=== PATIENT | female | born 2000 | race Two or more races ===

== ENCOUNTER 2020-12-12 09:32 | Emergency (ER) | payer OTHER, MEDICAID, SELFPAY ==
--- NOTE | ~2020-12-12 | XR_ITS ---
EXAMINATION: XR ANKLE, RIGHT XR FOOT, RIGHT CLINICAL INFORMATION: Fall, trauma, pain and swelling. COMPARISON: None TECHNIQUE: The right ankle is imaged in 2 views, the right foot is imaged in 2 views. There is a lateral view of the combined right ankle and foot in large [id number] for a total of 5 views. FINDINGS: The malleoli are intact and the ankle mortise is symmetric. There is no ankle capsular effusion. A corticated ossicle is seen just distal to the lateral malleolus. The retrocalcaneal recess is preserved. There are borderline posterior and plantar calcaneal spurs. The subtalar joint is unremarkable. The midfoot and forefoot show no fracture or dislocation or arthropathy. Normal bony mineralization. XR/XR foot RT min 3V IMPRESSION: No fracture or dislocation.
--- NOTE | ~2020-12-12 | XR_ITS ---
EXAMINATION: XR ANKLE, RIGHT XR FOOT, RIGHT CLINICAL INFORMATION: Fall, trauma, pain and swelling. COMPARISON: None TECHNIQUE: The right ankle is imaged in 2 views, the right foot is imaged in 2 views. There is a lateral view of the combined right ankle and foot in large [id number] for a total of 5 views. FINDINGS: The malleoli are intact and the ankle mortise is symmetric. There is no ankle capsular effusion. A corticated ossicle is seen just distal to the lateral malleolus. The retrocalcaneal recess is preserved. There are borderline posterior and plantar calcaneal spurs. The subtalar joint is unremarkable. The midfoot and forefoot show no fracture or dislocation or arthropathy. Normal bony mineralization. XR/XR ankle RT min 3V IMPRESSION: No fracture or dislocation.
[2020-12-12 10:05] VITALS: BP 99/48; PULSE 63; RESP 18; TEMP 36.6; O2SAT 99; BMI 40.7
--- NOTE | 2020-12-12 10:39 | ED_ITS ---
HPI - Extremity Injury (Lower) General Chief Complaint: Extremity Injury, Lower Stated Complaint: rt ankle injury Time Seen by Provider: 12/12/20 10:35 Source: patient and family Mode of arrival: ambulatory Limitations: no limitations History of Present Illness MD complaint: ankle injury, foot injury and fall Onset (ago): minute(s) (Prior to arrival) Injury: Right: ankle and foot Type of Injury: other (Twist injury) Place: home (While in the shower) Severity: moderate Relieving factors: nothing Exacerbating factors: movement and palpation Context: fall (While in the shower she slipped and fell twisting her right ankle denies any other injuries no head injury loss of consciousness not on blood thinner) Associated symptoms: swelling Other symptoms: none Related Data Previous Rx's Medication Instructions Recorded acetaminophen 500 mg tablet 1,000 mg PO QID PRN #14 tab 12/12/20 (Tylenol Extra Strength) ibuprofen 800 mg tablet 800 mg PO Q8H PRN #14 tab 12/12/20 Allergies Allergy/AdvReac Type Severity Reaction Status Date / Time No Known Allergies Allergy Verified 12/12/20 10:04 Review of Systems Review of Systems: Constitutional : No changes in activity, No lethargy, No recent prior head injury, No agitation, No increased fussiness ENT/Mouth : No Ear Pain, No Nasal discharge/drainage Eyes: No Eye Pain, No Swelling, No Redness, No Foreign Body, No Vision Changes Cardiovascular : No Chest Pain, No SOB Respiratory : No Cough Gastrointestinal : No Nausea, No Vomiting, No abdominal Pain Genitourinary : No Dysuria, No Urinary Frequency, No Urinary Incontinence, No Urgency, No Flank Pain Musculoskeletal : + joint pain, No neck stiffness, No back pain/injury Skin : No lacerations Neuro : No unsteady gait, No Paresthesias, No Loss of Consciousness, No altered mental status, No Headache Yes all other systems are reviewed and are negative [facility] Past Medical History Attestation statement: The following information was validated with the patient. Medical History No known health problems Social History Social History Advance Directives: No Advance Directives Information Provided: No Patient : No Physical Exam Vital Signs: Vital Signs: Last Vital Signs Temp 97.9 F 12/12/20 10:05 Pulse 63 12/12/20 10:05 Resp 18 12/12/20 10:05 BP 99/48 L 12/12/20 10:05 Pulse Ox 99 12/12/20 10:05 Body Mass Index 40.7 vital signs have been reviewed as normal and appeared to be correct. Blood pressure hypotensive 90/48. Heart rate normal. Respiration rate normal. Temperature normal. Oxygen saturation normal. Appearance: Alert. Oriented X3. No acute distress. Head: Normal external exam. Normocephalic. Atraumatic. No Braswell signs noted. No raccoon eyes noted Eyes: PERRLA. EOMI. Conjunctiva and sclera normal. Eyelids normal. ENT: Pharynx normal. Uvula midline. Moist mucous membranes. Neck: Normal inspection. Neck supple. FROM. No adenopathy. Thyroid Normal. No meningeal signs. No neck mass noted. CVS: Normal heart rate and rhythm. Heart sound normal. Pulses normal throughout. No murmurs/rales/gallops. Respiratory: No respiratory distress. Painless inspiration. Breath sounds normal. No wheezes/rales/rhonchi noted. Chest nontender. No accessory muscle usage noted or decreased air movement noted. Abdomen: Soft and nontender. Bowel sounds normal in all 4 quadrants. No distention noted. No organomegaly noted. No visible injury noted. Back: Full range of motion noted. No rashes/lesion/induration/fluctuance or signs of infection noted. Skin: Skin warm and dry. Normal skin color. Normal skin turgor. No rashes/lesions/lacerations noted. Extremities: Patient with mild tenderness palpation to right ankle joint at the lateral malleolus with moderate soft tissue swelling although patient has full range of motion no ligamentous laxity noted. Patient has tenderness palpation to 5th metatarsal of the right foot although patient has full range of motion of the right foot and toes no ligamentous laxity noted. No abrasion/laceration/ecchymosis noted on my exam. Otherwise all other extremities exhibit normal range of motion and nontender. Neuro: Oriented X 3. No motor deficit. No sensory deficit. Reflexes normal. Limping gait due to pain otherwise normal gait. No focal neuro deficits noted. Vascular: + radial pulses/+ 2 distal pedal pulses/+2 dorsalis pedis b/l. Normal cap refill. No cyanosis noted to upper extremity nails and lower extremity toes nails. Course Course Course Narrative: 20-year-old female presenting to the ED after she had a mechanical fall or she fell in the shower at her home injuring her right ankle/foot twist injury. Denies head injury or loss of consciousness. Not on any blood thinners. On exam patient noted to have moderate soft tissue swelling and tenderness palpation to right ankle joint at the lateral malleolus although she has full range of motion of the right foot/toes/ankle. No ligamentous laxity noted. No signs of infection or obvious deformities are noted. She has steady gait although complains of pain. X-ray negative for any acute processes. Will place in an [place] wrap treat symptomatic and instructions return if any new or worsening symptoms to follow up with primary care provider. Patient understands agrees with this plan. MDM - Extremity Injury (Lower) Medical Records Attestation: I reviewed the patient's medical records. Imaging Data Right ankle/foot x-ray: Attestation: I personally reviewed and interpreted this imaging study as follows: Radiologist's impression: FINDINGS: The malleoli are intact and the ankle mortise is symmetric. There is no ankle capsular effusion. A corticated ossicle is seen just distal to the lateral malleolus. The retrocalcaneal recess is preserved. There are borderline posterior and plantar calcaneal spurs. The subtalar joint is unremarkable. The midfoot and forefoot show no fracture or dislocation or arthropathy. Normal bony mineralization.? XR/XR ankle RT min 3V IMPRESSION: No fracture or dislocation.? FINDINGS: The malleoli are intact and the ankle mortise is symmetric. There is no ankle capsular effusion. A corticated ossicle is seen just distal to the lateral malleolus. The retrocalcaneal recess is preserved. There are borderline posterior and plantar calcaneal spurs. The subtalar joint is unremarkable. The midfoot and forefoot show no fracture or dislocation or arthropathy. Normal bony mineralization.? XR/XR foot RT min 3V IMPRESSION: No fracture or dislocation.? Discharge Plan Discharge Clinical Impression: Ankle sprain and strain, Sprain of foot, right, Fall Patient Disposition: Home, Self-Care Instructions: Ankle Sprain (ED), Foot Sprain (ED) Prescriptions: New ibuprofen 800 mg tablet 800 mg PO Q8H PRN (Reason: pain) Qty: 14 RF: 0 acetaminophen [Tylenol Extra Strength] 500 mg tablet 1,000 mg PO QID PRN (Reason: fever or pain) Qty: 14 RF: 0 Referrals: Physician,Unknown [Primary Care Provider] - 2 days (your pcp) Mihir Jeffrey MD [Physician] - 2 weeks (If symptoms persist for longer than 2-3 weeks please follow-up with orthopedics) Stand Alone Forms: Work/School Release Print Language: Romanian
== END 2020-12-12 10:54 | disposition home or self-care (01) ==
PROVIDERS: Emergency Provider Internal Medicine
DX: S93.401A Sprain of unspecified ligament of right ankle, initial encounter (principal); S96.911A Strain of unspecified muscle and tendon at ankle and foot level, right foot, initial encounter; S93.601A Unspecified sprain of right foot, initial encounter; W18.2XXA Fall in (into) shower or empty bathtub, initial encounter; Y93.E1 Activity, personal bathing and showering; Y92.031 Bathroom in apartment as the place of occurrence of the external cause; Y99.9 Unspecified external cause status
CPT/HCPCS: 73610; 73630; 99283

== ENCOUNTER 2022-07-14 22:30 | Emergency (ER) | payer OTHER, MEDICAID, SELFPAY ==
[2022-07-14 23:21] VITALS: BP 138/83; PULSE 105; RESP 18; TEMP 36.8; O2SAT 98; BMI 45.2
[2022-07-15 00:10] LABS: MANUAL DIFF FLAG NO
[2022-07-15 00:11] LABS: Basophils Percent Auto 0.3 % (0-2); Eosinophils Absolute Auto 0.1 X10*3/uL (0.0-0.4); Eosinophils Percent Auto 1.2 % (0-4); Hematocrit 36.1 % (37.0-47.0); Hemoglobin 11.5 g/dl (12.0-16.0); Imm Gran Abs Auto 0.03 X10*3/uL (0.00-0.03); Imm Gran Pct Auto 0.4 % (0.0-0.4); Lymphocytes Absolute Auto 0.5 X10*3/uL (1.2-4.9); Lymphocytes Percent Auto 6.1 % (20-40); Mean Corpuscular HGB Conc 31.9 g/dl (31.0-35.0); Mean Corpuscular Hemoglobin 26.7 pg (27.0-33.0); Mean Platelet Volume 10.1 fL (9.4-12.3); Monocytes Absolute Auto 0.6 X10*3/uL (0.1-1.2); Monocytes Percent Auto 7.3 % (2-11); Neutrophils Absolute Auto 6.4 x10*3/uL (2.0-8.3); Neutrophils Percent Auto 84.7 % (45-73); Platelet Count 287 X10*3/uL (160-400); Red Cell Distribution Width 15.9 % (11.0-16.0); White Blood Count 7.5 X10*3/uL (4.8-10.8)
[2022-07-15 00:25] LABS: Alanine Aminotransferase 8 U/L (0-31); Albumin Level 4.2 g/dL (3.5-5.0); Alkaline Phosphatase 59 U/L (39-117); Anion Gap 15 (12-20); Aspartate Amino Transferase 8 U/L (5-31); Bilirubin Total 0.4 mg/dL (0.0-1.0); Blood Urea Nitrogen 10 mg/dL (9-16); Carbon Dioxide 22 mmol/L (22-29); Chloride 107 mmol/L (96-108); Creatinine Clr Calc Pharmacy 148.3; Estimated Glomerular Filt Rate > 60; Glucose Random 135 mg/dL (60-115); Potassium 3.8 mmol/L (3.3-5.1); Sodium 140 mmol/L (135-145); Total Protein 7.1 g/dL (6.5-8.0)
[2022-07-15 02:47] VITALS: BP 130/74; PULSE 85; RESP 16; TEMP 36.9; O2SAT 99
--- NOTE | 2022-07-15 02:55 | ED_ITS ---
HPI - Skin/Abscess/Foreign Bdy General Chief complaint: Skin/Abscess/Foreign Body Stated complaint: ? pilondial cyst Time Seen by Provider: 07/15/22 02:44 Source: patient Mode of arrival: ambulatory Limitations: no limitations History of Present Illness HPI narrative: Patient comes to the emergency room complaining of a pilonidal cyst. Patient states it has been going on for couple of weeks, yesterday patient was taking a shower, patient's mother squeezed it and started draining. Patient states that this morning patient did not feel well, states she had subjective fever and chills. Related Data Previous Rx's Medication Instructions Recorded acetaminophen 500 mg tablet 1,000 mg PO QID PRN fever or pain 12/12/20 (Tylenol Extra Strength) #14 tabs ibuprofen 800 mg tablet 800 mg PO Q8H PRN pain #14 tabs 12/12/20 sulfamethoxazole 800 1 tab PO BID #14 tabs 07/15/22 mg-trimethoprim 160 mg tablet (Bactrim DS) tramadol 50 mg tablet 50 mg PO BID PRN pain #7 tabs 07/15/22 Allergies Allergy/AdvReac Type Severity Reaction Status Date / Time No Known Allergies Allergy Verified 12/12/20 10:04 Review of Systems Review of Systems: Constitutional : No Weight loss, No Fever, No Chills, No Night Sweats, No Fatigue, No Malaise ENT/Mouth : No Hearing loss, No Ear Pain, No Nasal Congestion, No Sinus Pain, No Hoarseness, No sore throat, No Rhinorrhea, No Swallowing Difficulty Eyes: No Eye Pain, No Swelling, No Redness, No Foreign Body, No Discharge, No Vision Changes Cardiovascular : No Chest Pain, No SOB, No Dyspnea on Exertion, No Orthopnea, No Edema, No Palpitations Respiratory : No Cough, No Sputum, No Wheezing, No Smoke Exposure, No Dyspnea Gastrointestinal : No Nausea, No Vomiting, No Diarrhea, No Constipation, No abdominal Pain, No Hematochezia, No Melena Genitourinary : no irregular bleeding, No Dysuria, No Urinary Frequency, No Hematuria, No Urinary Incontinence, No Urgency, No Flank Pain, No Urinary Flow Changes, No Hesitancy Musculoskeletal : No joint pain, No Myalgias, No Joint Swelling Skin : Complaining of a pilonidal cyst, 1st time Neuro : No Weakness, No Numbness, No Paresthesias, No Loss of Consciousness, No Dizziness, No Headache Psych : No Anxiety/Panic, No Depression, No SI/HI/AH/VH, No Social Issues, Heme/Lymph: No Bruising, No Bleeding,No Lymphadenopathy Endocrine : No Polyuria, No Polydipsia, No Temperature Intolerance PMF Past Medical History Medical History No known health problems Social History Social History Advance Directives: No Physical Exam Vital Signs: Vital Signs: Last Vital Signs Temp 98.4 F 07/15/22 02:47 Pulse 85 07/15/22 02:47 Resp 16 07/15/22 02:47 BP 130/74 07/15/22 02:47 Pulse Ox 99 07/15/22 02:47 O2 Del Method 07/15/22 02:47 BMI result Body Mass Index 45.2 Const: Other: Appearance: Alert. Oriented X3. No acute distress. Eyes: Pupils equal, round and reactive to light. ENT: Pharynx normal. Neck: Normal inspection. Neck supple. No lymph nodes noted. No crepitus CVS: Normal heart rate and rhythm. Pulses normal. Normal S1 and S2 Respiratory: No respiratory distress. Breath sounds normal. No Wheezing. No rales Abdomen: Soft and nontender. No rigidity. No distention. Skin: Skin warm and dry. Normal skin color. Normal skin turgor. Bedside ultrasound shows a very small amount of fluid collected 1 cm below the skin above the pilonidal cyst. Extremities: No lower extremity edema. No Lacerations. No Rash Neuro: Oriented X 3. No motor deficit. No sensory deficit. Moving all extremities. No slurred speech. CN 2 through 12 grossly intact Psych: calm, cooperative, normal affect Course Course Course Narrative: -I discussed with the patient that it is likely that the cyst drained enough by itself. However, this can close and the fluid can reaccumulate. Patient agreeable to an I and D and packing. -patient given p.o. oxycodone, and Bactrim Medications Administered Discontinued Medications Generic Name Dose Route Start Last Admin Trade Name Freq PRN Reason Stop Dose Admin Lidocaine HCl 10 ml 07/15/22 02:54 07/15/22 03:04 Lidocaine Hcl 2% 2 Ml Vial INFILTRATI 07/15/22 02:55 10 ml ONCE ONE Administration Oxycodone HCl 5 mg 07/15/22 02:54 07/15/22 03:04 Oxycodone Hcl Immed Release 5 Mg Tablet PO 07/15/22 02:55 5 mg ONCE ONE Administration Trimethoprim/Sulfamethoxazole 1 tab 07/15/22 02:55 07/15/22 03:04 Sulfamethox/Trimeth 800/160 Tablet PO 07/15/22 02:56 1 tab ONCE ONE Administration Medical Decision Making Medical Decision Making MDM Narrative: -I&D was performed, small amount of purulence was extracted. Wound was packed. -patient does not have a PCP, she will return in 24-48 hours for wound check and packing removed -patient given p.o. oxycodone prior to the procedure. Patient tolerated well the procedure Differential Diagnosis Differential Diagnoses: The differential diagnosis associated with the presentation includes (Pilonidal cyst, cellulitis, abscess) Lab Data 07/15/22 00:04 07/15/22 00:05 Labs: Lab Results 07/15/22 07/15/22 Range/Units 00:04 00:05 WBC 7.5 (4.8-10.8) X10*3/uL RBC 4.30 (4.20-5.50) X10*6/uL Hgb 11.5 L (12.0-16.0) g/dl Hct 36.1 L (37.0-47.0) % MCV 84.0 (80.0-98.0) fL MCH 26.7 L (27.0-33.0) pg MCHC 31.9 (31.0-35.0) g/dl RDW 15.9 (11.0-16.0) % Plt Count 287 (160-400) X10*3/uL MPV 10.1 (9.4-12.3) fL Immature Gran % (Auto) 0.4 (0.0-0.4) % Neut % (Auto) 84.7 H (45-73) % Lymph % (Auto) 6.1 L (20-40) % [place] % (Auto) 7.3 (2-11) % Eos % (Auto) 1.2 (0-4) % Baso % (Auto) 0.3 (0-2) % Lymph # (Auto) 0.5 L (1.2-4.9) X10*3/uL [place] # (Auto) 0.6 (0.1-1.2) X10*3/uL Eos # (Auto) 0.1 (0.0-0.4) X10*3/uL Baso # (Auto) 0.0 (0.0-0.2) X10*3/uL Abs Immat Gran (auto) 0.03 (0.00-0.03) X10*3/uL Absolute Neuts (auto) 6.4 (2.0-8.3) x10*3/uL Absolute Nucleated RBC 0.000 (0.0-0.012) X10*3/uL Nucleated RBC % (auto) 0.0 (0.0-0.2) /100WBC Sodium 140 (135-145) mmol/L Potassium 3.8 (3.3-5.1) mmol/L Chloride 107 (96-108) mmol/L Carbon Dioxide 22 (22-29) mmol/L Anion Gap 15 (12-20) BUN 10 (9-16) mg/dL Creatinine 0.73 (0.5-1.4) mg/dL Estim Creat Clear Calc 148.3 Estimated GFR > 60 Random Glucose 135 H (60-115) mg/dL Calcium 9.0 (8.4-10.2) mg/dL Total Bilirubin 0.4 (0.0-1.0) mg/dL AST 8 (5-31) U/L ALT 8 (0-31) U/L Alkaline Phosphatase 59 (39-117) U/L Total Protein 7.1 (6.5-8.0) g/dL Albumin 4.2 (3.5-5.0) g/dL Discharge Plan Discharge Clinical Impression: Pilonidal cyst Patient Disposition: Home, Self-Care Instructions: Pilonidal Cyst (ED) Additional Instructions: Please follow-up with your primary care physician tomorrow. If you have any worsening or new symptoms, please return to the emergency room or call 911 Prescriptions: New sulfamethoxazole-trimethoprim [Bactrim DS] 800-160 mg tablet 1 tab PO BID Qty: 14 0RF tramadol 50 mg tablet 50 mg PO BID PRN (Reason: pain) Qty: 7 0RF No Action ibuprofen 800 mg tablet 800 mg PO Q8H PRN (Reason: pain) Qty: 14 0RF acetaminophen [Tylenol Extra Strength] 500 mg tablet 1,000 mg PO QID PRN (Reason: fever or pain) Qty: 14 0RF
[2022-07-15] MEDS: Sulfamethox/Trimeth 800/160 TABLET 1 TAB PO (03:04)
[2022-07-15] MEDS: oxyCODONE HCl Immed Release 5 MG TABLET PO (03:04)
== END 2022-07-15 03:49 | disposition home or self-care (01) ==
PROVIDERS: Emergency Provider Emergency Medicine
DX: L05.91 Pilonidal cyst without abscess (principal)
CPT/HCPCS: 10080; 36415; 80053; 85025; 99284

== ENCOUNTER 2022-07-19 11:12 | Emergency (ER) | payer OTHER, MEDICAID, SELFPAY ==
[2022-07-19 11:15] VITALS: BP 154/61; PULSE 78; RESP 14; TEMP 36.8; O2SAT 98; BMI 45.1
--- NOTE | 2022-07-19 12:24 | ED_ITS ---
HPI - General Adult General Chief complaint: Wound/Laceration Stated complaint: packing removal Time Seen by Provider: 07/19/22 12:23 Source: patient Mode of arrival: ambulatory Limitations: no limitations History of Present Illness HPI narrative: Patient is a 22 year old assigned female at with no reported medical history presenting to the emergency department today for pilonidal abscess packing removal. Patient states that a few days ago she was seen for a pilonidal abscess and the wound from the incision and drainage was packed, so she is here for packing removal. Patient denies any dizziness, lightheadedness, abdominal pain, nausea, vomiting, fever, chills, blurry vision, double vision, loss of vision, chest pain, difficulty breathing, shortness of breath, back pain, night sweats, pain with urination, increased urinary frequency, increased urinary urgency, blood in her urine or stool, syncope or a near syncopal episode, recent trauma or falls, bowel incontinence, bladder incontinence, bowel retention, bladder retention, or any other complaints at this time. Onset (ago): day(s) (4) Severity: mild Severity scale (1-10): 2 Relieving factors: none Exacerbating factors: none Associated symptoms: denies other symptoms Treatments prior to arrival: none Related Data Previous Rx's Medication Instructions Recorded acetaminophen 500 mg tablet 1,000 mg PO QID PRN fever or pain 12/12/20 (Tylenol Extra Strength) #14 tabs ibuprofen 800 mg tablet 800 mg PO Q8H PRN pain #14 tabs 12/12/20 sulfamethoxazole 800 1 tab PO BID #14 tabs 07/15/22 mg-trimethoprim 160 mg tablet (Bactrim DS) tramadol 50 mg tablet 50 mg PO BID PRN pain #7 tabs 07/15/22 Allergies Allergy/AdvReac Type Severity Reaction Status Date / Time No Known Allergies Allergy Verified 12/12/20 10:04 Review of Systems Constitutional: Constitutional: Reports no additional constitutional complaints, Denies chills, Denies fever(s) and Denies night sweats Eyes: Eyes: Reports no additional eye complaints, Denies blurry vision, Denies change in vision, Denies diplopia, Denies eye discharge, Denies loss of vision and Denies eye pain ENT: Denies dizziness Cardiovascular: Cardiovascular: Reports no additional cardiovascular complaints, Denies chest pain, Denies lightheadedness, Denies Loss of Consciousness and Denies dyspnea Respiratory: Respiratory: Reports no additional respiratory complaints and Denies dyspnea Gastrointestinal: Gastrointestinal: Reports no additional gastrointestinal complaints, Denies abdominal pain, Denies melena, Denies hematochezia, Denies change in bowel habits and Denies change in stool character Comments: pilonidal abscess packing present Genitourinary: Genitourinary: Denies hematuria, Denies urinary frequency, Denies dysuria, Denies urinary incontinence, Denies urinary hesitancy and Denies urinary urgency Musculoskeletal: Musculoskeletal: Reports no additional musculoskeletal complaints, Denies numbness and Denies tingling Neurologic: Denies dizziness, Denies loss of vision, Denies numbness and Denies tingling Psychiatric: Psychiatric: Reports no additional psychiatric complaints Endocrine: Endocrine: Reports no additional endocrine complaints Hematologic/Lymphatic: Hematologic/Lymphatic: Reports no additional hematologic/lymphatic complaints Allergic/Immunologic: Allergic/Immunologic: Reports no additional allergic/immunologic complaints PMFSH Past Medical History Attestation statement: The following information was validated with the patient. Source: old records reviewed and nursing notes reviewed Medical History No known health problems Social History Social History Advance Directives: No Advance Directives Information Provided: Yes Physical Exam ED Vital Signs: Vital Signs - 24 hr 07/19/22 11:15 Temperature 98.2 F Pulse Rate 78 Respiratory Rate 14 Blood Pressure 154/61 H Pulse Oximetry 98 Oxygen Delivery Method Room Air BMI result Body Mass Index 45.1 Const General: cooperative, no acute distress, alert and awake Nutritional Appearance: well nourished Orientation/consciousness: patient oriented x3 Limitations: no limitations [facility] Head: Yes normal to inspection and Yes atraumatic Ears: hearing grossly normal bilaterally and external ears normal General nose exam: Normal external nose present, no nasal discharge noted and no epistaxis Face and sinus: Yes normal facial exam, No abrasion and No laceration Mouth: Normal oral and palatal mucosa present, no drooling and no muffled voice Eyes General: appearance normal, both eyes and all related structures Periorbital: periorbital findings normal Eyelids: Yes eyelids normal Conjunctivae: conjunctivae normal Pupils: Equal, round and reactive pupils present EOM: EOMs intact bilaterally Neck Neck: Yes normal visual inspection, Yes full ROM and Yes no lymphadenopathy Chest Chest palpation & inspection: normal inspection of the chest Resp Effort & Inspection: normal respiratory effort and able to speak in complete sentences Auscultation: clear to auscultation bilaterally Cardio Rate: regular rate Rhythm: regular rhythm GI Inspection: Yes normal to inspection Palpation (GI): Soft to palpation, not firm, nontender and no guarding Rectal Exam - Female: other (packing present in a previous pilonidal abscess incision and drainage wound) Neuro General: patient oriented x3 and moves all extremities Cranial nerves: Yes Equal, round and reactive pupils present Cognition (Neuro): normal cognition Motor exam (neuro): 5/5 motor strength present throughout Sensory Exam: Normal double simultaneous stimulation for sensation Coordination: [id number] test normal Extrem General: Yes normal to inspection, Yes full ROM and Yes capillary refill normal Psych Appearance: grossly normal Mental Status: mental status grossly normal Affect: normal affect Attitude: cooperative Thought process: Normal thought process present Thought content: Normal thought content present Insight: Good insight present (Psych) Procedures Procedure Narrative Procedure Narrative: packing removed from previously incised and drained pilonidal abscess, without incident Medical Decision Making Medical Decision Making MDM Narrative: Patient is a 22 year old assigned female at with no reported medical history presenting to the emergency department today for packing removal. Patient's physical exam showed packing present in a previously incised and drained pilonidal abscess. Patient's packing was removed, without incident. I explained my physical exam findings to the patient. I answered all questions asked by the patient. I stressed the importance of the patient taking her medication as prescribed. I stressed the importance of the patient following up with her primary care provider and a general surgeon. I stressed the importance of the patient returning to the emergency department immediately if her symptoms were to worsen or if she were to develop any dizziness, shortness of breath, difficulty breathing, chest pain, blurry vision, loss of vision, nausea, vomiting, abdominal pain, fever, chills, back pain, or any other complaints. Patient verbalized agreement and understanding with this treatment plan and discharge. Differential Diagnosis Differential Diagnoses: The differential diagnosis associated with the presentation includes packing removal Discharge Plan Discharge Clinical Impression: Abscess packing removal Patient Disposition: Home, Self-Care Additional Instructions: Follow up with your primary care provider and a general surgeon. Return to the emergency department immediately if your symptoms worsen or if you develop any dizziness, shortness of breath, difficulty breathing, chest pain, blurry vision, loss of vision, nausea, vomiting, abdominal pain, fever, chills, back pain, or any other complaints. Prescriptions: No Action ibuprofen 800 mg tablet 800 mg PO Q8H PRN (Reason: pain) Qty: 14 0RF acetaminophen [Tylenol Extra Strength] 500 mg tablet 1,000 mg PO QID PRN (Reason: fever or pain) Qty: 14 0RF sulfamethoxazole-trimethoprim [Bactrim DS] 800-160 mg tablet 1 tab PO BID Qty: 14 0RF tramadol 50 mg tablet 50 mg PO BID PRN (Reason: pain) Qty: 7 0RF Referrals: [facility] [place] General Surgeons [Provider Group] (Call to establish and follow up with a general surgeon.) [facility] [place]] (Call to establish and follow up with a primary care provider. ) [facility] [place] [Provider Group] (Call to establish and follow up with a primary care provider. ) [facility] [place]Provider Group] (Call to establish and follow up with a primary care provider. ) Stand Alone Forms: Work/School Release Interventions: ED Discharge Assessment Last Done: 07/19/22 12:59 Discharge Date/Time: 07/19/22 12:59 Print Language: Maltese
== END 2022-07-19 12:59 | disposition home or self-care (01) ==
PROVIDERS: Emergency Provider Student in an Organized Health Care Education/Training Program
DX: Z48.01 Encounter for change or removal of surgical wound dressing (principal)
CPT/HCPCS: 99282

== ENCOUNTER 2023-11-18 14:17 | Emergency (ER) | payer OTHER, MEDICAID, SELFPAY ==
--- NOTE | ~2023-11-18 | US_ITS ---
EXAMINATION: US OBSTETRICAL ULTRASOUND CLINICAL INFORMATION: Lower abdominal pressure and pain. Beta-hCG level 63,201 and November 18, 2023 COMPARISON: None available. LMP: 09/12/2023. Gestational age by maternal dates is 9 weeks 4 days. Estimated date of delivery by maternal dates is 06/18/2024. TECHNIQUE: Grayscale ultrasound pelvis transabdominal . FINDINGS: There is a single intrauterine gestational sac with visible yolk sac, embryo/fetus, and cardiac activity. There is no significant subchorionic hemorrhage or hematoma. HR: 153 beats per minute. CRL (crown rump length): 1.76 cm (8 weeks 2 days +/- 4 days). EAMON (estimated date of delivery): 06/27/2024 +/- 4 days. MATERNAL ADNEXA: The right maternal ovary measures 3.9 x 2.2 x 3.2 cm. Right ovarian volume 14.6 mL The left maternal ovary measures 3.5 x 3.1 x 2.4 cm. Left ovarian volume 13.3 mL There is no significant maternal adnexal mass. No maternal pelvic ascites. US/US OB <= 14 weeks fetus IMPRESSION: 1. Single intrauterine gestation with ultrasound gestational age of 8 weeks 2 days +/- 4 days. 2. Estimated date of delivery is 06/27/2024 +/- 4 days. 3. No maternal adnexal mass or pelvic ascites.
--- NOTE | 2023-11-18 14:20 | ECG_ITS ---
Test Reason : cp Blood Pressure : / mmHG Vent. Rate : 096 BPM Atrial Rate : 096 BPM P-R Int : 156 ms QRS Dur : 096 ms QT Int : 352 ms P-R-T Axes : 026 047 015 degrees QTc Int : 444 ms Normal sinus rhythm Inferior infarct , age undetermined Cannot rule out Anterior infarct , age undetermined Abnormal ECG When compared with ECG of 23-AUG-2011 15:05, Inferior infarct is now Present T wave inversion now evident in Inferior leads Referred By: Dorie Hutchins Electronically Signed By:MACO URIAS
[2023-11-18 14:36] VITALS: BP 163/85; PULSE 86; RESP 18; TEMP 36.8; O2SAT 99; BMI 47.9
--- NOTE | 2023-11-18 14:38 | ED_ITS ---
HPI - Chest Pain General Chief Complaint: Chest Pain Stated Complaint: positive test, chest pain Time Seen by Provider: 11/18/23 15:04 Source: patient, RN notes reviewed and old records reviewed Mode of arrival: ambulatory History of Present Illness ED Provider: Kizzy Douglas PA-C HPI narrative: 23-year-old female with no significant past medical history presenting to the ED complaining of nausea and vomiting x1 week with suprapubic discomfort. Admits to positive home test 2 days ago. Also reports intermittent substernal/left-sided chest pain with mild SOB x past couple of days, worsening today after eating. Pain is described as burning. Denies diarrhea, vaginal bleeding, vaginal discharge, recent travel, cigarette smoking, calf tenderness Related Data Previous Rx's ?Medication ?Instructions ?Recorded acetaminophen 500 mg tablet 1,000 mg (2 x 500 mg) PO QID PRN 12/12/20 (Tylenol Extra Strength) fever or pain #14 tabs ibuprofen 800 mg tablet 800 mg PO Q8H PRN pain #14 tabs 12/12/20 sulfamethoxazole 800 1 tab PO BID #14 tabs 07/15/22 mg-trimethoprim 160 mg tablet (Bactrim DS) tramadol 50 mg tablet 50 mg PO BID PRN pain #7 tabs 07/15/22 Allergies Allergy/AdvReac Type Severity Reaction Status Date / Time No Known Allergies Allergy Verified 11/18/23 14:40 Review of Systems 2 Review of Systems: Constitutional: No Fever, No Chills, No Fatigue, No Malaise ENT/Mouth: No Ear Pain, No Nasal Congestion, No sore throat, No Rhinorrhea, No Swallowing Difficulty Eyes: No Eye Pain, No Swelling, No Redness, No Vision Changes Cardiovascular: + Chest Pain, + SOB, No Palpitations Respiratory: No Cough, No Sputum, No Dyspnea Gastrointestinal: + Nausea, + Vomiting, No Diarrhea, No Constipation, + Abdominal pain Genitourinary: No irregular bleeding, no vaginal discharge, No Dysuria, No Hematuria, No Flank Pain Musculoskeletal: No joint pain, No Myalgias, No Joint Swelling Skin: No Skin Lesions, No rash Neuro: No Weakness, No Dizziness, No Headache Yes all other systems are reviewed and are negative Constitutional: Constitutional: Reports as per [facility] Past Medical History Attestation statement: The following information was validated with the patient. Source: old records reviewed Medical History No known health problems Social History Social History Advance Directives: No Advance Directives Information Provided: No Do you have a plan to hurt others: No Plan Physical Exam 2 Vital Signs: Vital Signs: Last Vital Signs Temp 98.3 F 11/18/23 14:36 Pulse 86 11/18/23 14:36 Resp 18 11/18/23 14:36 BP 163/85 H 11/18/23 14:36 Pulse Ox 99 11/18/23 14:36 O2 Del Method Room Air 11/18/23 14:36 BMI result Body Mass Index 47.9 Const: General: cooperative, healthy appearing and no acute distress O rientation/consciousness: patient oriented x3 Limitations: no limitations HEENT: Head: Yes normal to inspection and Yes atraumatic Ears: hearing grossly normal bilaterally General nose exam: Normal external nose present Face and sinus: Yes normal facial exam Eyes: General: appearance normal, both eyes and all related structures EOM: EOMs intact bilaterally Neck: Neck: Yes normal visual inspection and Yes no meningeal signs Chest: Chest palpation & inspection: normal inspection of the chest, no crepitus and no tenderness Resp: Effort & Inspection: normal respiratory effort and no respiratory distress Auscultation: clear to auscultation bilaterally, no crackles, no rales, no rhonchi and no wheezes Cardio: Rate: regular rate Heart sounds: S1 normal heart sound present and S2 normal heart sound present GI: Inspection: Yes normal to inspection Palpation (GI): Soft to palpation, nontender, no guarding and not rigid Skin: Rashes: no rashes Wounds: no wounds Neuro: General: patient oriented x3, tone normal and no meningeal signs C ranial nerves: Yes CN's II-XII intact bilaterally Gait exam (Neuro): Normal gait present Extrem: General: Yes normal to inspection Course Course Course Narrative: This is a Rapid Medical Examination (RME) performed by Ethel Hutchins PA-C in triage. Full HPI, ROS, assessment and treatment plan per primary provider in the Main ED. 23 yo female intermittent left sided chest pain x2 days. no radiation. admits to positive home test 2 days ago. Admits to abdominal cramping. no vaginal bleeding. +well appearing in triage. No anterior lateral or posterior chest wall tenderness. RRR. Lungs are CTA bilaterally. Abdomen is soft ND/NT. Plan: labs, ekg -1556--labs reassuring, troponin negative. HCG 63,201 -1630--ED care transferred to KINDRA Saunders pending UA and Pelvic US Reevaluation(s) Reevaluation #1: Discussed patient's ultrasound report with her, I discussed still awaiting urinalysis. The patient denies any burning with urination, urinary frequency or foul-smelling urine. I offered to have her wait and give a urine sample when able or she may follow up with the primary doctor for urinalysis if necessary. The patient does not want to wait for urinalysis and I have a low suspicion for UTI. She will be discharged at this time Time: 18:36 Medical Decision Making Medical Decision Making MDM Narrative: 23-year-old female with no significant past medical history presenting to the ED complaining of nausea and vomiting x1 week with suprapubic discomfort. Also reports intermittent substernal/left-sided chest pain with mild SOB x past couple of days, worsening today after eating. On exam vital signs stable, NAD, nontoxic appearing, lungs CTA, chest pain not reproducible, abdomen soft and nontender. Concern for early vs ectopic. Low suspicion for ovarian torsion. Concern for GERD/gastritis vs viral illness. Lower suspicion for pneumonia, ACS/PE with intermittent symptoms Plan: Labs, UA, ultrasound Please refer to course for remaining clinical decision making, interpretation of labs/imaging results, and discussions with consultants and/or family members. Differential Diagnosis Differential Diagnoses: The differential diagnosis associated with the presentation includes As above Admission/Observation Consideration of admission/observation: Escalation of care including admission/observation considered Lab Data MDM Lab Attestation statement: I reviewed the patient's lab results. 11/18/23 15:04 11/18/23 15:04 Labs: Lab Results 11/18/23 Range/Units 15:04 WBC 7.1 (4.8-10.8) X10*3/uL RBC 4.33 (4.20-5.50) X10*6/uL Hgb 12.7 (12.0-16.0) g/dl Hct 38.4 (37.0-47.0) % MCV 88.7 (80.0-98.0) fL MCH 29.3 (27.0-33.0) pg MCHC 33.1 (31.0-35.0) g/dl RDW 15.6 (11.0-16.0) % Plt Count 288 (160-400) X10*3/uL MPV 10.9 (9.4-12.3) fL Immature Gran % (Auto) 0.3 (0.0-0.4) % Neut % (Auto) 72.4 (45-73) % Lymph % (Auto) 18.5 L (20-40) % [place] % (Auto) 6.4 (2-11) % Eos % (Auto) 2.1 (0-4) % Baso % (Auto) 0.3 (0-2) % Lymph # (Auto) 1.3 (1.2-4.9) X10*3/uL [place] # (Auto) 0.5 (0.1-1.2) X10*3/uL Eos # (Auto) 0.2 (0.0-0.4) X10*3/uL Baso # (Auto) 0.0 (0.0-0.2) X10*3/uL Abs Immat Gran (auto) 0.02 (0.00-0.03) X10*3/uL Absolute Neuts (auto) 5.2 (2.0-8.3) x10*3/uL Absolute Nucleated RBC 0.000 (0.0-0.012) X10*3/uL Nucleated RBC % (auto) 0.0 (0.0-0.2) /100WBC Sodium 139 (135-145) mmol/L Potassium 4.3 (3.3-5.1) mmol/L Chloride 107 (96-108) mmol/L Carbon Dioxide 24 (22-29) mmol/L Anion Gap 12 (12-20) BUN 10 (9-16) mg/dL Creatinine 0.76 (0.5-1.4) mg/dL Estim Creat Clear Calc 151.6 Estimated GFR > 60 Random Glucose 128 H (60-115) mg/dL Calcium 9.5 (8.4-10.2) mg/dL Magnesium 1.6 (1.6-2.6) mg/dL Total Bilirubin 0.1 (0.0-1.0) mg/dL AST 9 (5-31) U/L ALT 17 (0-31) U/L Alkaline Phosphatase 51 (39-117) U/L Troponin I High Sens < 2.7 (<3.5-17.0) ng/L Total Protein 7.0 (6.5-8.0) g/dL Albumin 4.0 (3.5-5.0) g/dL Lipase 32 (8-78) U/L Beta HCG, Quant 83355 mIU/mL Independent Interpretation I performed an independent interpretation of an: Ultrasound Radiology Impression Discussion of test interpretation with radiology: I have reviewed the radiologist's reading. Radiologist Impression: US/US OB <= 14 weeks fetus IMPRESSION: 1. Single intrauterine gestation with ultrasound gestational age of 8 weeks 2 days +/- 4 days. 2. Estimated date of delivery is 06/27/2024 +/- 4 days. 3. No maternal adnexal mass or pelvic ascites. External Record Review External record reviewed: Inpatient record, Office record, Outpatient record, Prior outpatient labs, Prior outpatient radiology, Primary care record and Outside ED record Tests considered The following testing was considered but not selected: As above Discharge Plan Discharge Clinical Impression: Atypical chest pain, Patient Disposition: Home, Self-Care Additional Instructions: Your ultrasound shows that you are about 8 weeks and 2 days I recommend that you take vitamins daily and avoid alcohol use or NSAID use This important to get situated with an OBGYN doctor if you do not have 1 Your blood work today was reassuring Prescriptions: No Action ibuprofen 800 mg tablet 800 mg PO Q8H PRN (Reason: pain) Qty: 14 0RF acetaminophen [Tylenol Extra Strength] 500 mg tablet 1,000 mg PO QID PRN (Reason: fever or pain) Qty: 14 0RF sulfamethoxazole-trimethoprim [Bactrim DS] 800-160 mg tablet 1 tab PO BID Qty: 14 0RF tramadol 50 mg tablet 50 mg PO BID PRN (Reason: pain) Qty: 7 0RF Referrals: Young Ambriz MD [Physician] - () Print Language: [place] Islander
[2023-11-18 15:09] LABS: Basophils Percent Auto 0.3 % (0-2); Eosinophils Absolute Auto 0.2 X10*3/uL (0.0-0.4); Eosinophils Percent Auto 2.1 % (0-4); Hematocrit 38.4 % (37.0-47.0); Hemoglobin 12.7 g/dl (12.0-16.0); Imm Gran Abs Auto 0.02 X10*3/uL (0.00-0.03); Imm Gran Pct Auto 0.3 % (0.0-0.4); Lymphocytes Absolute Auto 1.3 X10*3/uL (1.2-4.9); Lymphocytes Percent Auto 18.5 % (20-40); MANUAL DIFF FLAG NO; Mean Corpuscular HGB Conc 33.1 g/dl (31.0-35.0); Mean Corpuscular Hemoglobin 29.3 pg (27.0-33.0); Mean Corpuscular Volume 88.7 fL (80.0-98.0); Mean Platelet Volume 10.9 fL (9.4-12.3); Monocytes Absolute Auto 0.5 X10*3/uL (0.1-1.2); Monocytes Percent Auto 6.4 % (2-11); Neutrophils Absolute Auto 5.2 x10*3/uL (2.0-8.3); Neutrophils Percent Auto 72.4 % (45-73); Platelet Count 288 X10*3/uL (160-400); Red Blood Count 4.33 X10*6/uL (4.20-5.50); Red Cell Distribution Width 15.6 % (11.0-16.0); White Blood Count 7.1 X10*3/uL (4.8-10.8)
[2023-11-18 15:29] LABS: Alanine Aminotransferase 17 U/L (0-31); Alkaline Phosphatase 51 U/L (39-117); Anion Gap 12 (12-20); Aspartate Amino Transferase 9 U/L (5-31); Bilirubin Total 0.1 mg/dL (0.0-1.0); Blood Urea Nitrogen 10 mg/dL (9-16); Calcium 9.5 mg/dL (8.4-10.2); Carbon Dioxide 24 mmol/L (22-29); Chloride 107 mmol/L (96-108); Creatinine Clr Calc Pharmacy 151.6; Estimated Glomerular Filt Rate > 60; Glucose Random 128 mg/dL (60-115); Lipase 32 U/L (8-78); Magnesium 1.6 mg/dL (1.6-2.6); Potassium 4.3 mmol/L (3.3-5.1); Sodium 139 mmol/L (135-145)
[2023-11-18 15:31] LABS: Troponin-I High Sensitivity < 2.7 ng/L (<3.5-17.0)
[2023-11-18 19:11] VITALS: BP 163/85; PULSE 86; RESP 18; TEMP 36.8; O2SAT 99
== END 2023-11-18 19:11 | disposition home or self-care (01) ==
PROVIDERS: Physician Assistant Medical; Emergency Provider Emergency Medicine
DX: O26.891 Other specified pregnancy related conditions, first trimester (principal); R07.89 Other chest pain; R06.02 Shortness of breath; R10.2 Pelvic and perineal pain; Z3A.14 14 weeks gestation of pregnancy
CPT/HCPCS: 36415; 76801; 80053; 83690; 83735; 84484; 84702; 85025; 93005; 99283; 99284

== ENCOUNTER → 2023-11-18 14:20 | Outpatient (BNV) | payer OTHER, MEDICAID, SELFPAY | PROVIDERS: Emergency Provider Emergency Medicine; Visit Provider Internal Medicine | DX: R94.31 Abnormal electrocardiogram [ECG] [EKG] (principal) | CPT/HCPCS: 93010 ==

== ENCOUNTER 2023-12-13 08:11 | Emergency (ER) | payer OTHER, SELFPAY ==
--- NOTE | ~2023-12-13 | US_ITS ---
EXAMINATION: US OBSTETRICAL ULTRASOUND CLINICAL INFORMATION: Heavy bleeding. 12 weeks . LMP 09/19/2003. COMPARISON: Obstetrical ultrasound dated 11/18/2023. LMP: 09/19/2023. Gestational age by maternal dates is 12 weeks 1 day. Estimated date of delivery by maternal dates is 06/25/2024. TECHNIQUE: Transabdominal and transvaginal images were obtained. FINDINGS: There is a single intrauterine gestational sac with visible yolk sac, embryo/fetus, and cardiac activity. There is no significant subchorionic hemorrhage or hematoma. HR: 157 beats per minute. CRL (crown rump length): 5.15 cm (11 weeks 6 days +/- 4 days). EAMON (estimated date of delivery): 06/27/2024 +/- 4 days. MATERNAL ADNEXA: The right maternal ovary measures 4.8 x 2.6 x 3.5 cm. Right ovarian cyst measuring 2.4 x 2 x 1.8 cm. The left maternal ovary measures 3.7 x 2.6 x 2.6 cm. There is no significant maternal adnexal mass. No maternal pelvic ascites. US/US OB <= 14 weeks fetus IMPRESSION: 1. Single intrauterine gestation with ultrasound gestational age of 11 weeks 6 days +/- 4 days. 2. Estimated date of delivery is 06/27/2024 +/- 4 days. 3. No maternal adnexal mass or pelvic ascites. Electronically signed by: Carlyle Jarrett MD 12/13/2023 11:26 AM EDT
[2023-12-13 08:20] VITALS: BP 141/66; PULSE 99; RESP 16; TEMP 37; O2SAT 98; BMI 48.4
[2023-12-13 08:34] LABS: MANUAL DIFF FLAG NO
[2023-12-13 08:37] LABS: Basophils Percent Auto 0.3 % (0-2); Eosinophils Absolute Auto 0.2 X10*3/uL (0.0-0.4); Hemoglobin 12.1 g/dl (12.0-16.0); Imm Gran Abs Auto 0.04 X10*3/uL (0.00-0.03); Imm Gran Pct Auto 0.5 % (0.0-0.4); Lymphocytes Absolute Auto 1.5 X10*3/uL (1.2-4.9); Lymphocytes Percent Auto 17.5 % (20-40); Mean Corpuscular HGB Conc 33.6 g/dl (31.0-35.0); Mean Corpuscular Volume 86.3 fL (80.0-98.0); Mean Platelet Volume 10.3 fL (9.4-12.3); Monocytes Absolute Auto 0.6 X10*3/uL (0.1-1.2); Monocytes Percent Auto 7.1 % (2-11); Neutrophils Absolute Auto 6.4 x10*3/uL (2.0-8.3); Neutrophils Percent Auto 72.6 % (45-73); Platelet Count 257 X10*3/uL (160-400); Red Blood Count 4.17 X10*6/uL (4.20-5.50); Red Cell Distribution Width 14.9 % (11.0-16.0); White Blood Count 8.8 X10*3/uL (4.8-10.8)
[2023-12-13 08:48] LABS: Anion Gap 12 (12-20); Blood Urea Nitrogen 9 mg/dL (9-16); Calcium 9.4 mg/dL (8.4-10.2); Carbon Dioxide 22 mmol/L (22-29); Chloride 106 mmol/L (96-108); Creatinine Clr Calc Pharmacy 178.5; Estimated Glomerular Filt Rate > 60; Glucose Random 108 mg/dL (60-115); Potassium 4.1 mmol/L (3.3-5.1); Sodium 136 mmol/L (135-145)
--- NOTE | 2023-12-13 09:02 | PC.NURSE ---
a&ox4. vss and up to date. pt presents to the ED w/ dark red spotting/clots x yesterday. pt reports headache but denies any episodes of dizziness/lightheadedness. pt is 12 weeks . first . LMP 09/18. 20gIV placed in the left AC - labs obtained/sent to lab. urine also obtained/sent to lab. pt waiting to have US completed. no sob/wob noted. respirations even/unlabored. family bedside for support. plan of care ongoing. call briscoe placed within reach.
[2023-12-13 09:08] LABS: MANUAL DIFF FLAG NO
[2023-12-13 09:12] LABS: Appearance Urine Cloudy; Basophils Percent Auto 0.4 % (0-2); Color Urine Yellow; Eosinophils Absolute Auto 0.2 X10*3/uL (0.0-0.4); Eosinophils Percent Auto 1.9 % (0-4); Glucose Urine UA Negative (Negative); Hematocrit 36.5 % (37.0-47.0); Hemoglobin 12.1 g/dl (12.0-16.0); Imm Gran Abs Auto 0.04 X10*3/uL (0.00-0.03); Imm Gran Pct Auto 0.5 % (0.0-0.4); Leukocyte Esterase Urine Moderate (2+) (Negative); Lymphocytes Absolute Auto 1.5 X10*3/uL (1.2-4.9); Lymphocytes Percent Auto 17.8 % (20-40); Mean Corpuscular HGB Conc 33.2 g/dl (31.0-35.0); Mean Corpuscular Hemoglobin 28.6 pg (27.0-33.0); Mean Corpuscular Volume 86.3 fL (80.0-98.0); Mean Platelet Volume 10.6 fL (9.4-12.3); Monocytes Absolute Auto 0.6 X10*3/uL (0.1-1.2); Monocytes Percent Auto 7.2 % (2-11); Neutrophils Absolute Auto 6.2 x10*3/uL (2.0-8.3); Neutrophils Percent Auto 72.2 % (45-73); Nitrite Urine Negative (Negative); Platelet Count 259 X10*3/uL (160-400); Red Blood Count 4.23 X10*6/uL (4.20-5.50); Red Cell Distribution Width 14.9 % (11.0-16.0); Specific Gravity - Urine >= 1.030 (1.005-1.025); UMIC TRIGGER UACC YES; Urine Blood Large (3+) (Negative); Urine Ketones Trace mg/dL (Negative); Urine Protein 30 (1+) mg/dL (Neg-Trace); White Blood Count 8.5 X10*3/uL (4.8-10.8)
--- NOTE | 2023-12-13 09:23 | PC.NURSE ---
ultrasound being completed at this time.
[2023-12-13 09:28] LABS: Alanine Aminotransferase 22 U/L (0-31); Albumin Level 3.9 g/dL (3.5-5.0); Alkaline Phosphatase 47 U/L (39-117); Anion Gap 12 (12-20); Aspartate Amino Transferase 17 U/L (5-31); Bilirubin Total 0.2 mg/dL (0.0-1.0); Blood Urea Nitrogen 9 mg/dL (9-16); Calcium 9.1 mg/dL (8.4-10.2); Carbon Dioxide 20 mmol/L (22-29); Chloride 108 mmol/L (96-108); Creatinine Clr Calc Pharmacy 178.5; Estimated Glomerular Filt Rate > 60; Glucose Random 109 mg/dL (60-115); Potassium 3.9 mmol/L (3.3-5.1); Sodium 136 mmol/L (135-145); Total Protein 7.3 g/dL (6.5-8.0)
[2023-12-13 09:29] LABS: Bacteria Urine 2+ (None Seen); Hyaline Casts Urine 0-2 /LPF (0-2); UACC Culture Trigger YES; WBC Urine 21-50 /HPF (0-5)
--- NOTE | 2023-12-13 10:12 | ED.GENADULT ---
HPI - General Adult General Chief complaint: OB Stated complaint: Vaginal bleeding - 12 weeks Time Seen by Provider: 12/13/23 08:32 Source: patient Mode of arrival: ambulatory Limitations: no limitations History of Present Illness ED Provider: DR. 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 No nausea, no vomiting, no diarrhea. Related Data Previous Rx's ?Medication ?Instructions ?Recorded acetaminophen 500 mg tablet 1,000 mg (2 x 500 mg) PO QID PRN 12/12/20 (Tylenol Extra Strength) fever or pain #14 tabs ibuprofen 800 mg tablet 800 mg PO Q8H PRN pain #14 tabs 12/12/20 sulfamethoxazole 800 1 tab PO BID #14 tabs 07/15/22 mg-trimethoprim 160 mg tablet (Bactrim DS) tramadol 50 mg tablet 50 mg PO BID PRN pain #7 tabs 07/15/22 nitrofurantoin 100 mg PO BID #14 caps 12/13/23 monohydrate/macrocrystals 100 mg capsule (Macrobid) Allergies Allergy/AdvReac Type Severity Reaction Status Date / Time No Known Allergies Allergy Verified 12/13/23 08:24 Review of Systems Review of Systems: All other systems are reviewed and are negative Constitutional: Reports as per HPI and Reports no additional constitutional complaints Eyes: Reports as per HPI and Reports no additional eye complaints Reports system reviewed and no additional complaints, except as documented Cardiovascular: Reports as per HPI and Reports no additional cardiovascular complaints Respiratory: Reports as per HPI and Reports no additional respiratory complaints Gastrointestinal: Reports as per HPI and Reports no additional gastrointestinal complaints Genitourinary: Reports no additional female genitourinary complaints Musculoskeletal: Reports no additional musculoskeletal complaints Skin/Breast: Reports system reviewed and no additional complaints, except as docu Psychiatric: Reports no additional psychiatric complaints Endocrine: Reports no additional endocrine complaints Hematologic/Lymphatic: Reports no additional hematologic/lymphatic complaints Allergic/Immunologic: Reports no additional allergic/immunologic complaints Reports system reviewed and no additional complaints, except as documented and Reports Abnormal speech present [facility] Past Medical History Medical History No known health problems Social History Social History Smoked in Last 30 Days: No Use of substances other than those prescribed or required for medical reasons: No Advance Directives: No Patient : Yes Physical Exam ED Vital Signs: Vital Signs - 24 hr 12/13/23 08:20 12/13/23 10:33 Temperature 98.6 F Pulse Rate 99 86 Respiratory Rate 16 16 Blood Pressure 141/66 H 131/56 L Pulse Oximetry 98 97 Oxygen Delivery Method Room Air Room Air BMI result Body Mass Index 48.4 Vital signs have been reviewed and appear to be correct. Blood pressure elevated. Heart rate normal. Respiratory rate normal. Temperature normal. Oxygen saturation normal. Appearance: Alert. Oriented X3. No acute distress. Head: Normal external exam. Normocephalic. Atraumatic. No Braswell signs noted. No raccoon eyes noted Eyes: PERRLA. EOMI. Conjunctiva and sclera normal. Eyelids normal. ENT: TM's Normal. Pharynx normal. Uvula midline. Moist mucous membranes. No trismus noted. No drooling noted. No muffled voice noted. Neck: Normal inspection. Neck supple. FROM. No adenopathy. Thyroid Normal. No meningeal signs. No neck mass noted. CVS: Normal heart rate and rhythm. Heart sound normal. No murmurs noted. Pulses normal throughout. Respiratory: No respiratory distress. Painless inspiration. Breath sounds normal. No wheezes/rales/rhonchi noted. Chest nontender. No accessory muscle usage noted or decreased air movement noted. Abdomen: Soft and nontender. Bowel sounds normal in all 4 quadrants. No distention noted. No organomegaly noted. No visible injury noted. Pelvic exam: Back: No CVA tenderness. Full range of motion noted. Skin: Skin warm and dry. Normal skin color. Normal skin turgor. No rashes/lesions/lacerations noted. Extremities: No lower extremity edema. Extremities exhibit normal range of motion. Extremities nontender. Neuro: Oriented X 3. Cranial nerve exam: II-XII are grossly intact No motor deficit. No sensory deficit. Reflexes normal. Course Reevaluation(s) Reevaluation #1: 23-year-old female about 12 weeks with vaginal bleeding, ultrasound showing IUP was HR 130, pelvic exam reveals scant blood in vault. Patient was given instruction of threatening a portion, no intercourse, no physical or strenuous activity, no heavy lifting and avoid standing for long time. Follow-up with Dr. Ambriz Time: 12:30 Medications Administered Discontinued Medications Generic Name Dose Route Start Last Admin Trade Name Freq PRN Reason Stop Dose Admin Nitrofurantoin Macrocrystals 100 mg 12/13/23 11:58 12/13/23 12:04 Nitrofurantoin Monohyd/M-Cryst 100 Mg Capsule PO 12/13/23 11:59 100 mg ONCE ONE Administration Medical Decision Making Differential Diagnosis Differential Diagnoses: The differential diagnosis associated with the presentation includes (Threatened , ectopic , normal early , UTI, electrolyte derangement, sepsis, severe anemia.) Admission/Observation Consideration of admission/observation: Escalation of care including admission/observation considered Lab Data MDM Lab Attestation statement: I reviewed the patient's lab results. 12/13/23 09:03 12/13/23 09:03 Labs: Lab Results 12/13/23 12/13/23 Range/Units 08:30 09:03 WBC 8.8 8.5 (4.8-10.8) X10*3/uL RBC 4.17 L 4.23 (4.20-5.50) X10*6/uL Hgb 12.1 12.1 (12.0-16.0) g/dl Hct 36.0 L 36.5 L (37.0-47.0) % MCV 86.3 86.3 (80.0-98.0) fL MCH 29.0 28.6 (27.0-33.0) pg MCHC 33.6 33.2 (31.0-35.0) g/dl RDW 14.9 14.9 (11.0-16.0) % Plt Count 257 259 (160-400) X10*3/uL MPV 10.3 10.6 (9.4-12.3) fL Immature Gran % (Auto) 0.5 H 0.5 H (0.0-0.4) % Neut % (Auto) 72.6 72.2 (45-73) % Lymph % (Auto) 17.5 L 17.8 L (20-40) % [place] % (Auto) 7.1 7.2 (2-11) % Eos % (Auto) 2.0 1.9 (0-4) % Baso % (Auto) 0.3 0.4 (0-2) % Lymph # (Auto) 1.5 1.5 (1.2-4.9) X10*3/uL [place] # (Auto) 0.6 0.6 (0.1-1.2) X10*3/uL Eos # (Auto) 0.2 0.2 (0.0-0.4) X10*3/uL Baso # (Auto) 0.0 0.0 (0.0-0.2) X10*3/uL Abs Immat Gran (auto) 0.04 H 0.04 H (0.00-0.03) X10*3/uL Absolute Neuts (auto) 6.4 6.2 (2.0-8.3) x10*3/uL Absolute Nucleated RBC 0.000 0.000 (0.0-0.012) X10*3/uL Nucleated RBC % (auto) 0.0 0.0 (0.0-0.2) /100WBC Sodium 136 136 (135-145) mmol/L Potassium 4.1 3.9 (3.3-5.1) mmol/L Chloride 106 108 (96-108) mmol/L Carbon Dioxide 22 20 L (22-29) mmol/L Anion Gap 12 12 (12-20) BUN 9 9 (9-16) mg/dL Creatinine 0.65 0.65 (0.5-1.4) mg/dL Estim Creat Clear Calc 178.5 178.5 Estimated GFR > 60 > 60 Random Glucose 108 109 (60-115) mg/dL Calcium 9.4 9.1 (8.4-10.2) mg/dL Total Bilirubin 0.2 (0.0-1.0) mg/dL AST 17 (5-31) U/L ALT 22 (0-31) U/L Alkaline Phosphatase 47 (39-117) U/L Total Protein 7.3 (6.5-8.0) g/dL Albumin 3.9 (3.5-5.0) g/dL Beta HCG, Quant 01141 mIU/mL Urine Color Yellow Urine Appearance Cloudy Urine pH 6.0 (5.0-9.0) Ur Specific [place] >= 1.030 H (1.005-1.025) Urine Protein 30 (1+) H (Neg-Trace) mg/dL Urine Glucose (UA) Negative (Negative) mg/dL Urine Ketones Trace (Negative) mg/dL Urine Blood Large (3+) H (Negative) Urine Nitrite Negative (Negative) Ur Leukocyte Esterase Moderate (2+) H (Negative) Urine RBC 11-20 H (0-2) /HPF Urine WBC 21-50 H (0-5) /HPF Ur Squamous Epith Cells 6-10 (0-2) /HPF Urine Bacteria 2+ (None Seen) Hyaline Casts 0-2 (0-2) /LPF Blood Type O Positive Antibody Screen NEGATIVE Independent Interpretation I performed an independent interpretation of an: Ultrasound (Pelvic ultrasound: IUP, HR 130) Radiology Impression Discussion of test interpretation with radiology: I have reviewed the radiologist's reading. Discharge Plan Discharge Clinical Impression: Threatened in first trimester, UTI (urinary tract infection) Patient Disposition: Home, Self-Care Instructions: Threatened Miscarriage (ED) Prescriptions: New nitrofurantoin monohyd/m-cryst [Macrobid] 100 mg capsule 100 mg PO BID Qty: 14 0RF Rx Instructions: must administer with a meal/food No Action ibuprofen 800 mg tablet 800 mg PO Q8H PRN (Reason: pain) Qty: 14 0RF acetaminophen [Tylenol Extra Strength] 500 mg tablet 1,000 mg PO QID PRN (Reason: fever or pain) Qty: 14 0RF sulfamethoxazole-trimethoprim [Bactrim DS] 800-160 mg tablet 1 tab PO BID Qty: 14 0RF tramadol 50 mg tablet 50 mg PO BID PRN (Reason: pain) Qty: 7 0RF Referrals: Young Ambriz MD [Physician] - Print Language: [place] Island[place]
[2023-12-13 10:33] VITALS: BP 131/56; PULSE 86; RESP 16; O2SAT 97
[2023-12-13 10:39] LABS: HCG Quantitative 31120 mIU/mL
[2023-12-13] MEDS: Nitrofurantoin Monohyd/M-Cryst 100 MG CAPSULE PO (12:04)
--- NOTE | 2023-12-13 12:06 | PC.NURSE ---
abx administered per provider order. ultrasound results still pending at this time.
[2023-12-13 15:05] VITALS: BP 134/59; PULSE 77; RESP 16; TEMP 36.7; O2SAT 99
[2023-12-13 16:37] VITALS: BP 134/66; PULSE 80; RESP 18; TEMP 36.7; O2SAT 98
== END 2023-12-13 16:39 | disposition home or self-care (01) ==
PROVIDERS: Emergency Provider Emergency Medicine
DX: O20.0 Threatened abortion (principal); N39.0 Urinary tract infection, site not specified; Z3A.12 12 weeks gestation of pregnancy; Z79.899 Other long term (current) drug therapy
CPT/HCPCS: 36415; 76801; 80048; 80053; 81001; 84702; 85025; 86850; 86900; 86901; 87086; 87147; 99284

== ENCOUNTER 2024-02-21 15:37 | Emergency (ER) | payer OTHER, SELFPAY ==
--- NOTE | ~2024-02-21 | US_ITS ---
EXAMINATION: US , LIMITED CLINICAL INFORMATION: Decreased movement at 21 weeks gestation COMPARISON: ultrasound 11/18/23 TECHNIQUE: A very limited transabdominal pelvic ultrasound was performed for viability. FINDINGS: A single live fetus was present in a breech presentation with a heart beat of 163 bpm. The placenta was located posteriorly. The fetus was active during the course of the exam. A single femur length measurement was 3.73 cm corresponding to gestational age of 22 weeks 0 days. US/US OB limited IMPRESSION: Live fetus as described above. Electronically signed by: Praveen Koroma MD 02/21/2024 06:46 PM EDT
--- NOTE | 2024-02-21 15:45 | ED.ABDPAIN ---
HPI - Abdominal Pain General Chief Complaint: General Medical Stated Complaint: Abd pain, pt is Time Seen by Provider: 02/21/24 17:03 Source: patient, RN notes reviewed and old records reviewed Mode of arrival: ambulatory History of Present Illness ED Provider: Kizzy Douglas PA-C HPI narrative: 23-year-old female at 21 weeks gestation presenting to the ED complaining of decreased movement x 2 days. States has not been feeling baby move as much as normal. Follows with [facility], states she did not contacted them. Denies other complaints at present including abdominal pain, vaginal bleeding, vaginal discharge, dysuria/hematuria, nausea, vomiting, decreased p.o. intake Related Data Previous Rx's ?Medication ?Instructions ?Recorded acetaminophen 500 mg tablet 1,000 mg (2 x 500 mg) PO QID PRN 12/12/20 (Tylenol Extra Strength) fever or pain #14 tabs ibuprofen 800 mg tablet 800 mg PO Q8H PRN pain #14 tabs 12/12/20 sulfamethoxazole 800 1 tab PO BID #14 tabs 07/15/22 mg-trimethoprim 160 mg tablet (Bactrim DS) tramadol 50 mg tablet 50 mg PO BID PRN pain #7 tabs 07/15/22 nitrofurantoin 100 mg PO BID #14 caps 12/13/23 monohydrate/macrocrystals 100 mg capsule (Macrobid) Allergies Allergy/AdvReac Type Severity Reaction Status Date / Time No Known Allergies Allergy Verified 02/21/24 15:47 Review of Systems Review of Systems Yes all other systems are reviewed and are negative Constitutional: Reports as per [facility] Past Medical History Attestation statement: The following information was validated with the patient. Source: old records reviewed Medical History No known health problems Social History Social History Smoked in Last 30 Days: No Use of substances other than those prescribed or required for medical reasons: No Advance Directives: No Advance Directives Information Provided: Yes Do you have a plan to hurt others: No Plan Patient : Yes (20wks) Physical Exam ED Vital Signs: Vital Signs - 24 hr 02/21/24 15:46 02/21/24 18:40 02/21/24 19:02 Temperature 98 F 98.0 F 98.0 F Pulse Rate 90 74 74 Respiratory Rate 18 18 18 Blood Pressure 145/79 H 128/52 L 128/52 L Pulse Oximetry 98 98 98 Oxygen Delivery Method Room Air Room Air Room Air BMI result Body Mass Index 50.0 Const General: cooperative, healthy appearing and no acute distress Orientation/consciousness: patient oriented x3 Limitations: no limitations HENMT Head: Yes normal to inspection and Yes atraumatic Ears: hearing grossly normal bilaterally General nose exam: Normal external nose present Face and sinus: Yes normal facial exam Eyes General: appearance normal, both eyes and all related structures EOM: EOMs intact bilaterally Neck Neck: Yes normal visual inspection and Yes no meningeal signs Resp Effort & Inspection: normal respiratory effort and no respiratory distress Auscultation: clear to auscultation bilaterally Cardio Rate: regular rate Heart sounds: S1 normal heart sound present and S2 normal heart sound present GI Inspection: Yes normal to inspection Palpation (GI): Soft to palpation, nontender, no guarding and not rigid Skin Rashes: no rashes Wounds: no wounds Neuro General: patient oriented x3, tone normal and no meningeal signs Cranial nerves: Yes CN's II-XII intact bilaterally Gait exam (Neuro): Normal gait present Extrem General: Yes normal to inspection Course Course Course Narrative: This is a Rapid Medical Exam performed in triage by Kizzy Douglas PA-C. Full HPI, ROS and PE to be performed by primary ED provider. 23 yo F @21 weeks gestation presenting to the ED c/o not feeling baby move as much as typical x2 days. Follows with [facility], did not contact them. Denies abdominal pain, vaginal bleeding/discharge PE: Nontoxic appearing, abdomen soft Plan: Labs, US -1720--beta quant 3,093 6950--US OB limited IMPRESSION: Live fetus as described above. FINDINGS: A single live fetus was present in a breech presentation with a heart beat of 163 bpm. The placenta was located posteriorly. The fetus was active during the course of the exam. A single femur length measurement was 3.73 cm corresponding to gestational age of 22 weeks 0 days. Results discussed with patient including worrisome signs and symptoms and strict return precautions, and when to return to the emergency department. They verbalized understanding and feel safe for discharge at this time. Medical Decision Making Medical Decision Making [facility] Narrative: 23-year-old female at 21 weeks gestation presenting to the ED complaining of decreased movement x 2 days. On exam vital signs stable, NAD, nontoxic appearing, abdomen soft and nontender. Concern for normal vs distress vs demise. Plan: Labs, UA, ultrasound Please refer to course for remaining clinical decision making, interpretation of labs/imaging results, and discussions with consultants and/or family members. Differential Diagnosis Differential Diagnoses: The differential diagnosis associated with the presentation includes As above Admission/Observation Consideration of admission/observation: Escalation of care including admission/observation considered Lab Data [facility] Lab Attestation statement: I reviewed the patient's lab results. 02/21/24 15:57 02/21/24 15:57 Labs: Lab Results 02/21/24 02/21/24 Range/Units 15:57 17:37 WBC 9.8 (4.8-10.8) X10*3/uL RBC 4.11 L (4.20-5.50) X10*6/uL Hgb 12.6 (12.0-16.0) g/dl Hct 37.3 (37.0-47.0) % MCV 90.8 (80.0-98.0) fL MCH 30.7 (27.0-33.0) pg MCHC 33.8 (31.0-35.0) g/dl RDW 15.2 (11.0-16.0) % Plt Count 260 (160-400) X10*3/uL MPV 11.0 (9.4-12.3) fL Immature Gran % (Auto) 0.6 H (0.0-0.4) % Neut % (Auto) 74.7 H (45-73) % Lymph % (Auto) 17.0 L (20-40) % [place] % (Auto) 5.3 (2-11) % Eos % (Auto) 2.0 (0-4) % Baso % (Auto) 0.4 (0-2) % Lymph # (Auto) 1.7 (1.2-4.9) X10*3/uL [place] # (Auto) 0.5 (0.1-1.2) X10*3/uL Eos # (Auto) 0.2 (0.0-0.4) X10*3/uL Baso # (Auto) 0.0 (0.0-0.2) X10*3/uL Abs Immat Gran (auto) 0.06 H (0.00-0.03) X10*3/uL Absolute Neuts (auto) 7.3 (2.0-8.3) x10*3/uL Absolute Nucleated RBC 0.000 (0.0-0.012) X10*3/uL Nucleated RBC % (auto) 0.0 (0.0-0.2) /100WBC Sodium 139 (135-145) mmol/L Potassium 4.1 (3.3-5.1) mmol/L Chloride 108 (96-108) mmol/L Carbon Dioxide 22 (22-29) mmol/L Anion Gap 13 (12-20) BUN 7 L (9-16) mg/dL Creatinine 0.74 (0.5-1.4) mg/dL Estim Creat Clear Calc 154.2 Estimated GFR > 60 Random Glucose 108 (60-115) mg/dL Calcium 9.4 (8.4-10.2) mg/dL Total Bilirubin 0.1 (0.0-1.0) mg/dL Direct Bilirubin < 0.2 (0.0-0.5) mg/dL AST 14 (5-31) U/L ALT 13 (0-31) U/L Alkaline Phosphatase 53 (39-117) U/L Total Protein 7.2 (6.5-8.0) g/dL Albumin 3.6 (3.5-5.0) g/dL Beta HCG, Quant 3387 mIU/mL Urine Color Yellow Urine Appearance Cloudy Urine pH 6.5 (5.0-9.0) Ur Specific [place] >= 1.030 H (1.005-1.025) Urine Protein 30 (1+) H (Neg-Trace) mg/dL Urine Glucose (UA) Negative (Negative) mg/dL Urine Ketones Trace (Negative) mg/dL Urine Blood Negative (Negative) Urine Nitrite Negative (Negative) Ur Leukocyte Esterase Moderate (2+) H (Negative) Urine RBC 0-2 (0-2) /HPF Urine WBC >50 H (0-5) /HPF Ur Squamous Epith Cells 11-20 (0-2) /HPF Calcium Oxalate Crystal Present Urine Bacteria 4+ (None Seen) Hyaline Casts 0-2 (0-2) /LPF Urine Trichomonas Present Urine Yeast Present Independent Interpretation I performed an independent interpretation of an: Ultrasound Radiology Impression Discussion of test interpretation with radiology: I have reviewed the radiologist's reading. External Record Review External record reviewed: Inpatient record, Office record, Outpatient record, Prior outpatient labs, Prior outpatient radiology, Primary care record and Outside ED record Tests considered The following testing was considered but not selected: As above Chronic Conditions Patient?s care impacted by: Other Social Determinants Patient?s care significantly limited by Social Determinants of Health including: Other Social Determinant of Health Discharge Plan Discharge Clinical Impression: Patient Disposition: Home, Self-Care Instructions: (ED) Additional Instructions: Your ultrasound shows a single intrauterine with a heart rate of 163. Measuring at 22 weeks and 0 days Your hCG is 3387 Your urine does have protein in it, please mention this to your OBGYN YOU NEED TO FOLLOW-UP WITH YOUR OBGYN. CALL TOMORROW TO MAKE AN APPOINTMENT If you develop any pain, vaginal bleeding, discharge, nausea, vomiting, inability to eat or drink return to the ED immediately Prescriptions: No Action ibuprofen 800 mg tablet 800 mg PO Q8H PRN (Reason: pain) Qty: 14 0RF acetaminophen [Tylenol Extra Strength] 500 mg tablet 1,000 mg PO QID PRN (Reason: fever or pain) Qty: 14 0RF sulfamethoxazole-trimethoprim [Bactrim DS] 800-160 mg tablet 1 tab PO BID Qty: 14 0RF tramadol 50 mg tablet 50 mg PO BID PRN (Reason: pain) Qty: 7 0RF nitrofurantoin monohyd/m-cryst [Macrobid] 100 mg capsule 100 mg PO BID Qty: 14 0RF Rx Instructions: must administer with a meal/food Referrals: [facility] [Provider Group] Interventions: ED Discharge Assessment Last Done: 02/21/24 19:02 Discharge Date/Time: 02/21/24 19:02 Print Language: Mongolian
[2024-02-21 15:46] VITALS: BP 145/79; PULSE 90; RESP 18; TEMP 36.6; O2SAT 98; BMI 50.0
[2024-02-21 16:01] LABS: MANUAL DIFF FLAG NO
[2024-02-21 16:06] LABS: Basophils Percent Auto 0.4 % (0-2); Eosinophils Absolute Auto 0.2 X10*3/uL (0.0-0.4); Hematocrit 37.3 % (37.0-47.0); Hemoglobin 12.6 g/dl (12.0-16.0); Imm Gran Abs Auto 0.06 X10*3/uL (0.00-0.03); Imm Gran Pct Auto 0.6 % (0.0-0.4); Lymphocytes Absolute Auto 1.7 X10*3/uL (1.2-4.9); Mean Corpuscular HGB Conc 33.8 g/dl (31.0-35.0); Mean Corpuscular Hemoglobin 30.7 pg (27.0-33.0); Mean Corpuscular Volume 90.8 fL (80.0-98.0); Monocytes Absolute Auto 0.5 X10*3/uL (0.1-1.2); Monocytes Percent Auto 5.3 % (2-11); Neutrophils Absolute Auto 7.3 x10*3/uL (2.0-8.3); Neutrophils Percent Auto 74.7 % (45-73); Platelet Count 260 X10*3/uL (160-400); Red Blood Count 4.11 X10*6/uL (4.20-5.50); Red Cell Distribution Width 15.2 % (11.0-16.0); White Blood Count 9.8 X10*3/uL (4.8-10.8)
--- NOTE | 2024-02-21 16:07 | PC.NURSE ---
heart rate obtained rate 156
[2024-02-21 16:27] LABS: HCG Quantitative 3387 mIU/mL
[2024-02-21 16:28] LABS: Alanine Aminotransferase 13 U/L (0-31); Albumin Level 3.6 g/dL (3.5-5.0); Alkaline Phosphatase 53 U/L (39-117); Anion Gap 13 (12-20); Aspartate Amino Transferase 14 U/L (5-31); Bilirubin Direct < 0.2 mg/dL (0.0-0.5); Bilirubin Total 0.1 mg/dL (0.0-1.0); Blood Urea Nitrogen 7 mg/dL (9-16); Calcium 9.4 mg/dL (8.4-10.2); Carbon Dioxide 22 mmol/L (22-29); Chloride 108 mmol/L (96-108); Creatinine Clr Calc Pharmacy 154.2; Estimated Glomerular Filt Rate > 60; Glucose Random 108 mg/dL (60-115); Potassium 4.1 mmol/L (3.3-5.1); Sodium 139 mmol/L (135-145); Total Protein 7.2 g/dL (6.5-8.0)
--- NOTE | 2024-02-21 17:02 | PC.NURSE ---
patient from external triage from home, states she is 20wks and has been experiencing decreased movement since yesterday. states she feels the baby move, however she has not felt the baby kick as much as she normally does. patient states she has had a normal thus far, denies bleeding or sudden gushes of fluids. denies any pains or vaginal disharge. states she did not call her OB before coming in, is being followed at [facility] for care. offering no other complaints, US completed at bedside. FHR obtained with doppler
[2024-02-21 18:00] LABS: Appearance Urine Cloudy; Color Urine Yellow; Glucose Urine UA Negative (Negative); Leukocyte Esterase Urine Moderate (2+) (Negative); Nitrite Urine Negative (Negative); PH 6.5 (5.0-9.0); Specific Gravity - Urine >= 1.030 (1.005-1.025); UMIC TRIGGER UACC YES; Urine Blood Negative (Negative); Urine Ketones Trace mg/dL (Negative); Urine Protein 30 (1+) mg/dL (Neg-Trace)
[2024-02-21 18:40] VITALS: BP 128/52; PULSE 74; RESP 18; TEMP 36.7; O2SAT 98
[2024-02-21 19:02] VITALS: BP 128/52; PULSE 74; RESP 18; TEMP 36.7; O2SAT 98
[2024-02-21 19:16] LABS: Bacteria Urine 4+ (None Seen); Hyaline Casts Urine 0-2 /LPF (0-2); UACC Culture Trigger YES; WBC Urine >50 /HPF (0-5)
[2024-02-21 20:19] LABS: RBC Urine 0-2 /HPF (0-2); Trichomonas Urine Present
[2024-02-21 20:20] LABS: Calcium Oxalate Crystals Urine Present
== END 2024-02-21 19:02 | disposition home or self-care (01) ==
PROVIDERS: Physician Assistant; Emergency Provider Emergency Medicine Emergency Medical Services
DX: O36.8120 Decreased fetal movements, second trimester, not applicable or unspecified (principal); Z3A.21 21 weeks gestation of pregnancy; Z79.899 Other long term (current) drug therapy
CPT/HCPCS: 36415; 76815; 80048; 80076; 81001; 84702; 85025; 87086; 87147; 99284

== ENCOUNTER 2024-04-27 12:47 | Emergency (ER) | payer OTHER, SELFPAY ==
--- NOTE | 2024-04-27 12:49 | ECG_ITS ---
Test Reason : chest pain Blood Pressure : / mmHG Vent. Rate : 099 BPM Atrial Rate : 099 BPM P-R Int : 148 ms QRS Dur : 104 ms QT Int : 356 ms P-R-T Axes : 021 051 015 degrees QTc Int : 456 ms Normal sinus rhythm Normal ECG When compared with ECG of 18-NOV-2023 14:23, No significant change was found Referred By: Generic ED Physician Electronically Signed By:ROB FLEMING MD
--- NOTE | 2024-04-27 13:10 | ED_ITS ---
HPI - General Adult General Chief complaint: Chest Pain Stated complaint: Chest pain pt is Time Seen by Provider: 04/27/24 13:34 Source: patient and old records reviewed Limitations: no limitations History of Present Illness ED Provider: FRANCES SCHREIBER narrative: 23 yo female who reports he is 32 weeks followed at [facility] states she has had no issues this does have thyroid issues. She notes for 2 dyas she has anterior sternal chest pain only with certain movements or lifting. She denies dyspnea, headaches, increased leg swelling. She denies abdominal pain, leakage of fluids, vaginal bleeding. She denies any recent URIs, travel, or any other concerns. She has not had chest pain during . It does not hurt to breathe MD complaint: chest pain Onset (ago): day(s) (2) Location: chest Radiation: non-radiation Severity: mild Quality: other (pulling stinging) Pain Consistency: intermittent Relieving factors: rest Exacerbating factors: other (any certain movements or lifting heavy objects) Associated symptoms: denies other symptoms Treatments prior to arrival: none Related Data Previous Rx's ?Medication ?Instructions ?Recorded acetaminophen 500 mg tablet 1,000 mg (2 x 500 mg) PO QID PRN 12/12/20 (Tylenol Extra Strength) fever or pain #14 tabs ibuprofen 800 mg tablet 800 mg PO Q8H PRN pain #14 tabs 12/12/20 sulfamethoxazole 800 1 tab PO BID #14 tabs 07/15/22 mg-trimethoprim 160 mg tablet (Bactrim DS) tramadol 50 mg tablet 50 mg PO BID PRN pain #7 tabs 07/15/22 nitrofurantoin 100 mg PO BID #14 caps 12/13/23 monohydrate/macrocrystals 100 mg capsule (Macrobid) Allergies Allergy/AdvReac Type Severity Reaction Status Date / Time No Known Allergies Allergy Verified 04/27/24 13:13 Review of Systems 2 Review of Systems: Constitutional : No Weight loss, No Fever, No Chills ENT/Mouth : No sore throat, No Rhinorrhea Eyes: No Eye Pain, No Swelling Cardiovascular : pos Chest Pain, no SOB, no Dyspnea on Exertion, No Orthopnea, No Edema, No Palpitations Respiratory : No Cough, No Sputum Gastrointestinal : no Nausea, No Vomiting, No Diarrhea, No abdominal Pain, No Hematochezia, No Melena Genitourinary : No Dysuria, No Urinary Frequency Musculoskeletal : No joint pain, No Myalgias, No Joint Swelling Skin : No Skin Lesions, No rash Neuro : No Weakness, No Numbness, No Dizziness, No Headache All other systems reviewed and are negative [facility] Past Medical History Attestation statement: The following information was validated with the patient. Source: old records reviewed Medical History No known health problems Social History Social History (Updated 04/27/24 @ 14:10 by Kristina Mi DO) Patient Tobacco Use Status: Never used Tobacco Smoked in Last 30 Days: No Use of substances other than those prescribed or required for medical reasons: No Advance Directives: No Advance Directives Information Provided: Yes Do you have a plan to hurt others: No Plan Patient : Yes Physical Exam ED Vital Signs: Vital Signs - 24 hr 04/27/24 13:11 04/27/24 14:01 04/27/24 14:18 Temperature 97.7 F Pulse Rate 103 H 100 94 Respiratory Rate 20 20 20 Blood Pressure 160/86 H 154/76 H 125/70 Pulse Oximetry 99 98 Oxygen Delivery Method Room Air Room Air BMI result Body Mass Index 53.3 Appearance: Alert. Oriented X3. No acute distress. Eyes: Pupils equal, round and reactive to light. ENT: Pharynx normal. Neck: Normal inspection. Neck supple. CVS: Normal heart rate and rhythm. Pulses normal. Chest wall: reproduceable pain Respiratory: No respiratory distress. Breath sounds normal. Abdomen: Soft and nontender. Skin: Skin warm and dry. Normal skin color. Normal skin turgor. Extremities: No lower extremity edema. No calf ttp Neuro: Oriented X 3. No motor deficit. No sensory deficit. CN2-12 intact Course Course Course Narrative: This is a rapid medical exam performed by Maura Avila NP: Additional HPI, ROS, PE not included below will be deferred to primary provider. Patient is a 23-year-old 32 week EAMON [birth year] female presenting with complaint of chest pain with movement and lifting for the past few days. Denies pain at rest. Sees [facility] for care. BP 160/86 in triage. Plan: application technician aware, EKG, labs Medications Administered Discontinued Medications Generic Name Dose Route Start Last Admin Trade Name Erin PRN Reason Stop Dose Admin Magnesium Sulfate 4 gm in 50 mls @ 150 mls/hr 04/27/24 14:05 04/27/24 14:15 Magnesium Sulfate/H2o IV 04/27/24 14:24 150 mls/hr ONCE ONE Administration Medical Decision Making Medical Decision Making [facility] Narrative: 23 yo female G1 32 weeks here with c/o atypical chest pain with movements and no infectious symptoms she has reproduceable chest wall pain given history and exam without signs of unilateral edema I doubt this is VTE or ACS, she reports no dyspnea with 1+ pitting edema cardiomyopathy is possible but I am more concerned about her pressures that have remained elevated. IV labetalol on standby and IV magnesium load ordered. Call to [facility] on arrival no labetalol given as BP has remained under 160 RN infusing magnesium consulted pharmacy we do not carry IV betamethasone Differential Diagnosis Differential Diagnoses: The differential diagnosis associated with the presentation includes atypical chest pain, preeclampsia Admission/Observation Consideration of admission/observation: Escalation of care including admission/observation considered transfer to [facility] Consult Healthcare Provider Management of the patient was discussed with: Resident Engineer Yulissa chief resident accepts transfer under Dr. Lam Lab Data [facility] Lab Attestation statement: I reviewed the patient's lab results. 04/27/24 13:44 04/27/24 14:06 Labs: Lab Results 04/27/24 04/27/24 04/27/24 Range/Units 13:44 14:02 14:06 WBC 9.5 (4.8-10.8) X10*3/uL RBC 3.95 L (4.20-5.50) X10*6/uL Hgb 12.1 (12.0-16.0) g/dl Hct 36.9 L (37.0-47.0) % MCV 93.4 (80.0-98.0) fL MCH 30.6 (27.0-33.0) pg MCHC 32.8 (31.0-35.0) g/dl RDW 15.0 (11.0-16.0) % Plt Count 215 (160-400) X10*3/uL MPV 11.6 (9.4-12.3) fL Immature Gran % (Auto) 0.5 H (0.0-0.4) % Neut % (Auto) 75.3 H (45-73) % Lymph % (Auto) 15.9 L (20-40) % [place] % (Auto) 5.8 (2-11) % Eos % (Auto) 2.2 (0-4) % Baso % (Auto) 0.3 (0-2) % Lymph # (Auto) 1.5 (1.2-4.9) X10*3/uL [place] # (Auto) 0.6 (0.1-1.2) X10*3/uL Eos # (Auto) 0.2 (0.0-0.4) X10*3/uL Baso # (Auto) 0.0 (0.0-0.2) X10*3/uL Abs Immat Gran (auto) 0.05 H (0.00-0.03) X10*3/uL Absolute Neuts (auto) 7.2 (2.0-8.3) x10*3/uL Absolute Nucleated RBC 0.000 (0.0-0.012) X10*3/uL Nucleated RBC % (auto) 0.0 (0.0-0.2) /100WBC Hold Purple Top SEE NOTE Urine Color Yellow Urine Appearance Turbid Urine pH 6.0 (5.0-9.0) Ur Specific Iron >= 1.030 H (1.005-1.025) Urine Protein 30 (1+) H (Neg-Trace) mg/dL Urine Glucose (UA) Negative (Negative) mg/dL Urine Ketones Trace (Negative) mg/dL Urine Blood Trace H (Negative) Urine Nitrite Negative (Negative) Ur Leukocyte Esterase Large (3+) H (Negative) Urine RBC 0-2 (0-2) /HPF Urine WBC >50 H (0-5) /HPF Ur Squamous Epith Cells >20 (0-2) /HPF Urine Bacteria 3+ (None Seen) Hyaline Casts 0-2 (0-2) /LPF Independent Interpretation I performed an independent interpretation of an: EKG Interpretation: Rate: 96 Rhythm: NSR [place]: normal Normal P waves. Normal YONI. Normal QRS complex. ST T wave : no SEJAL, inverted t waves III qTC: 444 prior studies: no acute ischemia The study has been interpreted contemporaneously by me. . Critical Care Time Critical Care Time Critical Care Time: Yes Total Critical Care Time: 35 Attestation: transfer, method consultant, IV magnesium load, repeat VS I attest to this time spent taking care of the patient Discharge Plan Discharge Clinical Impression: Atypical chest pain Pre-eclampsia Qualifiers: Trimester: third trimester Qualified Code(s): O14.93 - Unspecified pre- eclampsia, third trimester Patient Disposition: [facility] Transfer Details: [facility] Prescriptions: No Action ibuprofen 800 mg tablet 800 mg PO Q8H PRN (Reason: pain) Qty: 14 0RF acetaminophen [Tylenol Extra Strength] 500 mg tablet 1,000 mg PO QID PRN (Reason: fever or pain) Qty: 14 0RF sulfamethoxazole-trimethoprim [Bactrim DS] 800-160 mg tablet 1 tab PO BID Qty: 14 0RF tramadol 50 mg tablet 50 mg PO BID PRN (Reason: pain) Qty: 7 0RF nitrofurantoin monohyd/m-cryst [Macrobid] 100 mg capsule 100 mg PO BID Qty: 14 0RF Rx Instructions: must administer with a meal/food Print Language: Persian
[2024-04-27 13:11] VITALS: BP 160/86; PULSE 103; RESP 20; TEMP 36.5; O2SAT 99; BMI 53.3
[2024-04-27 13:50] LABS: MANUAL DIFF FLAG NO
[2024-04-27 13:52] LABS: Basophils Percent Auto 0.3 % (0-2); Eosinophils Absolute Auto 0.2 X10*3/uL (0.0-0.4); Eosinophils Percent Auto 2.2 % (0-4); Hematocrit 36.9 % (37.0-47.0); Hemoglobin 12.1 g/dl (12.0-16.0); Imm Gran Abs Auto 0.05 X10*3/uL (0.00-0.03); Imm Gran Pct Auto 0.5 % (0.0-0.4); Lymphocytes Absolute Auto 1.5 X10*3/uL (1.2-4.9); Lymphocytes Percent Auto 15.9 % (20-40); Mean Corpuscular HGB Conc 32.8 g/dl (31.0-35.0); Mean Corpuscular Hemoglobin 30.6 pg (27.0-33.0); Mean Corpuscular Volume 93.4 fL (80.0-98.0); Mean Platelet Volume 11.6 fL (9.4-12.3); Monocytes Absolute Auto 0.6 X10*3/uL (0.1-1.2); Monocytes Percent Auto 5.8 % (2-11); Neutrophils Absolute Auto 7.2 x10*3/uL (2.0-8.3); Neutrophils Percent Auto 75.3 % (45-73); Platelet Count 215 X10*3/uL (160-400); Red Blood Count 3.95 X10*6/uL (4.20-5.50); White Blood Count 9.5 X10*3/uL (4.8-10.8)
[2024-04-27 14:01] VITALS: BP 154/76; PULSE 100; RESP 20
[2024-04-27 14:14] LABS: Appearance Urine Turbid; Color Urine Yellow; Glucose Urine UA Negative (Negative); Leukocyte Esterase Urine Large (3+) (Negative); Nitrite Urine Negative (Negative); Specific Gravity - Urine >= 1.030 (1.005-1.025); UMIC TRIGGER UACC YES; Urine Blood Trace (Negative); Urine Ketones Trace mg/dL (Negative); Urine Protein 30 (1+) mg/dL (Neg-Trace)
[2024-04-27] MEDS: Magnesium Sulfate/H2O 4 GM/50 ML PIGGYBACK IV (14:15)
[2024-04-27 14:18] VITALS: BP 125/70; PULSE 94; RESP 20; O2SAT 98
[2024-04-27 14:21] LABS: Bacteria Urine 3+ (None Seen); Hyaline Casts Urine 0-2 /LPF (0-2); RBC Urine 0-2 /HPF (0-2); Squamous Epithelial Cell Urine >20 /HPF (0-2); UACC Culture Trigger YES; WBC Urine >50 /HPF (0-5)
[2024-04-27 14:35] VITALS: BP 117/51; PULSE 90; RESP 18; O2SAT 97
[2024-04-27 14:41] LABS: Troponin-I High Sensitivity < 2.7 ng/L (<3.5-17.0)
[2024-04-27 14:42] LABS: Alanine Aminotransferase 11 U/L (0-31); Albumin Level 3.4 g/dL (3.5-5.0); Anion Gap 12 (12-20); Aspartate Amino Transferase 15 U/L (5-31); Bilirubin Total 0.1 mg/dL (0.0-1.0); Blood Urea Nitrogen 8 mg/dL (9-16); Calcium 9.1 mg/dL (8.4-10.2); Carbon Dioxide 22 mmol/L (22-29); Chloride 108 mmol/L (96-108); Creatinine Clr Calc Pharmacy 188.6; Estimated Glomerular Filt Rate > 60; Glucose Random 117 mg/dL (60-115); Potassium 4.5 mmol/L (3.3-5.1); Sodium 137 mmol/L (135-145); Total Protein 7.5 g/dL (6.5-8.0)
[2024-04-27 14:55] LABS: Thyroid Stimulating Hormone 3.16 uIU/mL (0.32-4.0)
--- NOTE | 2024-04-27 15:11 | PC.NURSE ---
Late entry: heart tones checked prior to leaving, 144-148. Mag infusing. Pt reported CP 08/02, burning. NSR on bedside monitor. Report given to [facility] RN and EMS
[2024-04-27 15:12] VITALS: BP 117/51; PULSE 90; RESP 18; TEMP 36.3; O2SAT 97
[2024-04-27 15:17] LABS: Alkaline Phosphatase 70 U/L (39-117)
== END 2024-04-27 15:13 | disposition short-term general hospital (02) ==
PROVIDERS: Registered Nurse Emergency; Emergency Provider Emergency Medicine
DX: O14.93 Unspecified pre-eclampsia, third trimester (principal); O26.893 Other specified pregnancy related conditions, third trimester; R07.89 Other chest pain; Z3A.32 32 weeks gestation of pregnancy
CPT/HCPCS: 36415; 80053; 81001; 84443; 84484; 85025; 87086; 87147; 93005; 96374; 99285; J3475

== ENCOUNTER → 2024-04-27 12:49 | Outpatient (BNV) | payer OTHER, SELFPAY | PROVIDERS: Emergency Provider Emergency Medicine; Visit Provider Internal Medicine Cardiovascular Disease | DX: R07.9 Chest pain, unspecified (principal) | CPT/HCPCS: 93010 ==

== ENCOUNTER → 2024-09-04 13:29 | Outpatient (BNVA) | payer OTHER, SELFPAY | PROVIDERS: Visit Provider Physician Assistant Surgical ==

== ENCOUNTER 2024-09-21 07:57 | Outpatient (AMB) | payer OTHER, SELFPAY ==
--- NOTE | 2024-09-21 09:37 | A.OFFVIS_ITS ---
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 BMI 53: Details: Start time: 9.30am, End time: 10.08am ?I spent 33 minutes speaking with the patient on the phone plus an additional 5 minutes reviewing and updating records for a total of 38 minutes HPI Comments Details: Previous weight loss efforts: exercise Wakes up: 7am, Sleeps: 9pm Breakfast: skips Lunch: 1pm (sandwich) Dinner: 5pm (rice and chicken) Snacks: snacks twice before lunch (cookies and chips), 4pm (cookies and chips), 7-8pm (cookies and chips) Exercise: none Beverages: Coffee/tea: none, soda: regular Sprite (3-4 bottles), juice: (fruity juice 3-4/wk), ETOH: none PFSH Medical History (Updated 09/21/24 @ 09:39 by Khadar Bah MD) Hypothyroidism Morbid obesity Delivery with history of No known health problems Family History (Updated 09/04/24 @ 14:12 by Marisa Pina CMA) Mother No problems noted. Father Diabetes Daughter No problems noted. Social History (Updated 09/04/24 @ 14:12 by Marisa Pina CMA) Alcohol intake: current Alcohol intake frequency: holidays/special occasions only Patient Tobacco Use Status: Current someday Tobacco user Telehealth Telehealth Telehealth Platform: Telephone Location of provider rendering services: practice address Location of patient: address on file Patient Identification confirmed using: Name, : Yes Telehealth method: voice only Patient verbally consented to treatment: Yes Patient verbally consented to billing insurance company: Yes Minutes spent on Phone/Video with Pt.: 38 Assessment & Plan Assessment & Plan (1) Morbid obesity: Code(s): E66.01 - Morbid (severe) obesity due to excess calories Category: Medical Plan: 1.? Plan for lap sleeve gastrectomy. If diaphragmatic or ventral hernias are present at time of surgery, these will be repaired laparoscopically as well. I emphasized the importance of close follow-up, adherence to instructions and good communication. The surgery does not replace the need to change your lifestlyle which is the cause of the obesity problem. The surgery provides the motivation to try again to change your lifestyle, it reduces the appetite and make the transition to a better lifestyle easier and doubles the amount of weight you would lose compared to doing the lifestyle change without the surgery. You will need to be on a liquid diet with protein shakes for 2 weeks before surgery to maximize weight loss and boost your nutritional status to recover better from surgery and also for the first two weeks after surgery to let the stomach heal before we introduce other foods. After the first 2 weeks we will introduce protein bars and soft foods like scrambled eggs, cottage cheese and yogurt and after the 6th week will introduce meat, fish and cooked v egetables in small amounts. Over time you should be able to eat everything in small amounts. Side effects like nausea, vomiting, heartburn or abdominal pain are not common in the practice unless you are not following in the practice. This operation requires lifetime commitment to following in our practice and communication with me. You will much less weight and experience side effects if you don?t communicate or not following in the practice. Complications are rare and in our practice is about 1/10 of the national average. However, you can develop bleeding that may require transfusion (hasn?t happened for year in the practice), you may from complications (we did not have any deaths in the practice) and infections. Infections are usually a result of breakdown in communication or not understanding or following directions correctly. They are difficult to treat, they can happen during the first 6 weeks, they may require to be in the hospital for weeks or even months, not being able to eat by mouth and you may have drains and surgeries to try and correct the issue. Other risks and complications include possible conversion to an open procedure, leaks, small bowel obstruction, blood clots, cardiac, or pulmonary complications, as jail complications such as ulcers, insufficient weight loss and vitamin deficiencies. 2. You will receive a link of our software leon to generate an individualized nutritional and exercise plan specific for you. Please send me a screenshot of the plans you will generate Meal to include lean meat (beef, fish, pork, turkey, chicken), or sol[place] islander yogurt, or egg whites, or beans with a salad with olive oil and fruits (berries, pears, apples, kiwi). Avoid salt, breads, potatoes, rice, pasta, desserts. ?3. If you choose shakes, each shake would be drunk slowly, like coffee in a period of 2 hours. ?4. If you choose bars, cut each bar in 4 pieces and eat each piece in 30min ?to make each bar last 2 hours. ?5. I emphasized the importance of measuring accurately the food portion and measure it when serving the food in plate ?6. The meal portions include a specific number of forks of meat and salad. You always eat the meat portion but you can replace up to half of salad/vegetables portion with rice, potatoes or pasta, or a fruit ?if you like. The less you do it the better weight loss will be. ?7. One full-size fork is what it can be scooped on the fork without falling aside and not what can be bit with the fork. Use regular forks like those you find in a typical restaurant. ?8.? Please buy the body composition scale we discussed and send me weight measurements as soon as possible and then once a week. Always include your diet and exercise plan. 9. The best choice would be to purchase a stationary bike, elliptical or treadmill at home that can track calories. Let me know if you do so I can give you an exercise plan. 9. The best exercise choice would be to use your treadmill at home that can track calories. You can create and exercise plan with the [employer] leon. ?10.?It is important of avoiding and for at least 18 months postoperatively and has been discussed at the infosession. ?11. Goal is to lose at least 1.5-2lbs per week ?12. Goal to lose 10% of your weight before surgery, which is about 30lbs. Ultimate weight goal: 278lbs before surgery 13. Please follow the diet plan exactly without any change. If you don't like something about the plan or you feel hungry you need to communicate with me so I can help you revise the plan. You should not change the plan yourself. 14. To be scheduled for EGD to assess the stomach. The possibility of biopsies was discussed. Patient needs to avoid use of NSAIDs and aspirin for 1 week prior to EGD. You must be on liquids only the day before your endoscopy. Risks of perforation and bleeding was discussed with the patient. This will be an outpatient procedure with IV sedation. Orders: Orders H Pylori Breath Test Today E03.9 - Hypothyroidism, unspecified, E66.01 - Morbid (severe) obesity due to excess calories Complete Blood Count Auto Diff Today E03.9 - Hypothyroidism, unspecified, E66.01 - Morbid (severe) obesity due to excess calories Lipid Panel Today E03.9 - Hypothyroidism, unspecified, E66.01 - Morbid (severe) obesity due to excess calories Comprehensive Met. Panel Today E03.9 - Hypothyroidism, unspecified, E66.01 - Morbid (severe) obesity due to excess calories C Reactive Protein Today E03.9 - Hypothyroidism, unspecified, E66.01 - Morbid (severe) obesity due to excess calories Vitamin B1 Today E03.9 - Hypothyroidism, unspecified, E66.01 - Morbid (severe) obesity due to excess calories US abdomen comp w elastography Today E03.9 - Hypothyroidism, unspecified, E66.01 - Morbid (severe) obesity due to excess calories ECG 12 lead EKG Today E03.9 - Hypothyroidism, unspecified, E66.01 - Morbid (severe) obesity due to excess calories Insulin Today E03.9 - Hypothyroidism, unspecified, E66.01 - Morbid (severe) obesity due to excess calories Hemoglobin A1c Today E03.9 - Hypothyroidism, unspecified, E66.01 - Morbid (severe) obesity due to excess calories IRON PROFILE Today E03.9 - Hypothyroidism, unspecified, E66.01 - Morbid (severe) obesity due to excess calories Vitamin B12 and Folate Today E03.9 - Hypothyroidism, unspecified, E66.01 - Morbid (severe) obesity due to excess calories Zinc Today E03.9 - Hypothyroidism, unspecified, E66.01 - Morbid (severe) obesity due to excess calories Vitamin A Today E03.9 - Hypothyroidism, unspecified, E66.01 - Morbid (severe) obesity due to excess calories TSH reflex Free T4 Today E03.9 - Hypothyroidism, unspecified, E66.01 - Morbid (severe) obesity due to excess calories Ferritin Today E03.9 - Hypothyroidism, unspecified, E66.01 - Morbid (severe) obesity due to excess calories Vitamin D 25-OH Total Today E03.9 - Hypothyroidism, unspecified, E66.01 - Morbid (severe) obesity due to excess calories XR chest 2V Today E03.9 - Hypothyroidism, unspecified, E66.01 - Morbid (severe) obesity due to excess calories FL upper GI w air Today E03.9 - Hypothyroidism, unspecified, E66.01 - Morbid (severe) obesity due to excess calories Referrals Nutrition/Dietitian Referral E03.9 - Hypothyroidism, unspecified, E66.01 - Morbid (severe) obesity due to excess calories Behavioral Health Referral E03.9 - Hypothyroidism, unspecified, E66.01 - Morbid (severe) obesity due to excess calories
[2024-09-21 09:43] VITALS: BMI 52.9
== END 2024-09-21 10:11 | disposition home or self-care (01) ==
LOC: HO.HBS 07:57
PROVIDERS: Visit Provider Surgery
DX: E66.01 Morbid (severe) obesity due to excess calories (principal)
CPT/HCPCS: 99203

== ENCOUNTER 2024-09-24 11:03 | Day surgery (SDC) | payer OTHER, SELFPAY ==
--- NOTE | 2024-09-21 14:18 | HO.ANESPROP2 ---
Documented by User: Aliya Hicks NP 09/21/24 14:19 HPI - Anesthesia Eval Consult details Narrative: 24yo F for Upper Endoscopy [facility] Active Problems Active Problems: All Active Problems Hypothyroidism (Acute) Morbid obesity (Acute) Past Medical History Medical History (Updated 09/21/24 @ 09:39 by Khadar Bah MD) Hypothyroidism Morbid obesity Delivery with history of No known health problems Family History Family History (Updated 09/04/24 @ 14:12 by Marisa Pina CMA) Mother No problems noted. Father Diabetes Daughter No problems noted. Surgical History Surgical History (Updated 09/24/24 @ 11:34 by Nadine Powers RN) Previous section Social History Social History (Updated 09/04/24 @ 14:12 by Marisa Pina CMA) Are you a primary medication care manager to a significant other at home: No Do you presently have visiting nurse or other home services: No Alcohol intake: current Alcohol intake frequency: holidays/special occasions only Patient Tobacco Use Status: Current everyday Tobacco user Tobacco use type: Smokeless Tobacco Years Smoked: 6 Smoked in Last 30 Days: Yes Use of substances other than those prescribed or required for medical reasons: Yes Substance Use Frequency: Monthly Have you been hit, kicked, punched, or otherwise hurt by someone within the past year? If so, by whom?: No Are you DNR?: No Advance Directives: No Advance Directives Information Provided: No Advance Directives on File: No Patient : No : No Poor oral hygiene: No Meds Allergies Allergy/AdvReac Type Severity Reaction Status Date / Time No Known Allergies Allergy Verified 09/24/24 11:34 Home Medications ?Medication ?Instructions ?Recorded ?Confirmed ?Last Taken ?Type No Known Home Meds 09/24/24 09/24/24 Unknown History Assessment and Plan Assessment Anesthesia Assessment: Chart Reviewed Documented by User: Maria Ines Abad MD 09/24/24 13:07 PMFSH Past Medical History Medical History (Updated 09/21/24 @ 09:39 by Khadar Bah MD) Hypothyroidism Morbid obesity Delivery with history of No known health problems Family History Family History (Updated 09/04/24 @ 14:12 by Marisa Pina CMA) Mother No problems noted. Father Diabetes Daughter No problems noted. Family history of problems with anesthesia: No Surgical History Surgical History (Updated 09/24/24 @ 11:34 by Nadine Powers RN) Previous section History of Problems with Anesthesia: No Social History Social History (Updated 09/04/24 @ 14:12 by Marisa Pina CMA) Are you a primary medication care manager to a significant other at home: No Do you presently have visiting nurse or other home services: No Alcohol intake: current Alcohol intake frequency: holidays/special occasions only Patient Tobacco Use Status: Current everyday Tobacco user Tobacco use type: Smokeless Tobacco Years Smoked: 6 Smoked in Last 30 Days: Yes Use of substances other than those prescribed or required for medical reasons: Yes Substance Use Frequency: Monthly Have you been hit, kicked, punched, or otherwise hurt by someone within the past year? If so, by whom?: No Are you DNR?: No Advance Directives: No Advance Directives Information Provided: No Advance Directives on File: No Patient : No : No Poor oral hygiene: No Meds Allergies Allergy/AdvReac Type Severity Reaction Status Date / Time No Known Allergies Allergy Verified 09/24/24 11:34 Home Medications ?Medication ?Instructions ?Recorded ?Confirmed ?Last Taken ?Type No Known Home Meds 09/24/24 09/24/24 Unknown History Exam Airway Mallampati Class: III TM Dist: <=3cm Neck ROM: Full Heart: rrr Lungs: cta Assessment and Plan Assessment Anesthesia Assessment: Anesthesia Plan Discussed Final Anesthetic Review Family History of Problems with Anesthesia: No History of Problems with Anesthesia: No NPO: Yes ASA Class: III (ett planned, pt npo from midnight and difficult airway ) Final Preanesthetic Review: No Changes in Pt Med Stat, Meds/Allgs Chart Reviewed, Consent Obtained/Reviewed and Anes Risks/Benef Reviewed Patient Risk: Intermediate Procedure Risk: Low Anesthetic Plan Anesthetic Plan: GA Disposition: Standard PACU
[2024-09-24 11:49] VITALS: BP 163/98; PULSE 82; RESP 16; TEMP 37.4; O2SAT 98; BMI 52.6
[2024-09-24 11:57] LABS: UPreg QC Valid YES; Urine Pregnancy NEGATIVE (NEGATIVE)
[2024-09-24] MEDS: Lactated Ringers 1,000 ML 80 ML IVCONT (12:05)
--- NOTE | 2024-09-24 12:35 | MHC.SHP ---
Pre-Procedural Eval Section A - 24 Hr Update-Section A only Date of Service: 09/24/24 The patient is an INPATIENT: No The patient has been examined within 24 hours of the surgical procedure. The History & Physical has been completed within 30 days and I have reviewed it.: Yes Section B - Complete if H&P > 30 days Chief Complaint: Morbid (severe) obesity due to excess calories Relevant Family History (Specify if Yes): No Relevant Social History: None Present Medications: None Medical History: No relevant PMH History of Previous Operations: No relevant previous surgery Allergies: Allergies Allergy/AdvReac Type Severity Reaction Status Date / Time No Known Allergies Allergy Verified 09/24/24 11:34 Review of Systems Sugical H&P ROS: Negative: Constitution, Cardiovascular, Respiratory, Neurological, Psychiatric, Hem-Onc, Allergic/Immunologic, Gastrointestinal, Genitourinary, Musculoskeletal, Integumentary, Endocrine and Eyes/Ears/Nose/Throat Exam Surgical H&P Exam: Normal: HEENT, Normal: Heart, Normal: Lungs, Normal: Extremities, Normal: Abdomen, Normal: Skin and Normal: Neurological Plan Diagnosis/Plan: Unchanged (EGD to assess the stomach's anatomy. Risks of bleeding and perforation were discussed with the patient and she is in agreement with the plan.) I have reviewed the history and physical and performed a pertinent physical examination on my patient. No changes have occurred unless specified. Time Spent With Patient Time: Total time managing care of this patient today ____ minutes.
--- NOTE | 2024-09-24 12:40 | P.BOP_ITS ---
Brief Operative Note Date of Service: 09/24/24 Pre-op diagnosis: Morbid obesity Post-op diagnosis: same Procedure: PROCEDURE DATE: 09/24/2024 PREOPERATIVE DIAGNOSIS: Morbid obesity POSTOPERATIVE DIAGNOSIS: ?Same as above. Normal endoscopy PROCEDURE: [id number] with biopsies Surgeon: Orion Bah M.D.. Ph.D. Operator Weapon Locating Radar: None ? Anesthesia: IV sedation Estimated blood loss: ?Minimal FINDINGS AND PROCEDURE: ? OPERATIVE INDICATIONS: ?The patient is a 24 year old female known to me who is interested in bariatric surgery. Based on this information I recommended an upper endoscopy to evaluate the stomach's anatomy. Risks and complications of the surgery were discussed with the patient in advance particularly the possibility of perforation or bleeding that may require surgical intervention. The patient understood the risks and was in agreement with the plan. ? PROCEDURE: After informed consent was obtained by the patient, the patient was ?transferred to the Operating Room and was placed in the supine position.? After successful induction of IV sedation, a mouth block was inserted and the patient was placed in the left lateral decubitus position. An upper endoscopy was performed next, the oropharynx and esophagus appeared within the normal limits. There was no hernia. The z-line was smooth. Two biopsies were obtained from the distal esophagus 2-3 cm proximal to the GE j unction and two additional biopsies from the GE junction. The stomach was entered and it appeared to be of normal size. There was no gastritis. There was no stricture or ulcer. A biopsy was obtained from the gastric fundus and the antrum. No significant bleeding was noted from any of the biopsy sites. The scope was then advanced into the duodenum which appeared to be normal as well. At that point the duodenum ?and the stomach were decompressed and the scope was withdrawn from the patient's mouth. The patient extubated and was transferred in stable condition to the Recovery Room for further care. I was present and performed all steps of the procedure. There were no residents to assist with this case. Ken Bah M.D., Ph.D. Surgeon: Khadar Bah MD Anesthesia: MAC Was an Operator Weapon Locating Radar used for this Procedure?: No Estimated blood loss (mL): 0 IV fluids (mL): 400 Urine output (mL): 0 Pathology: other (1) antrum x1, 2) fundus x1, 3) GE junction x2, 4) distal esophagus x2) Condition: stable Disposition: PACU
[2024-09-24 13:28] VITALS: BP 132/82; PULSE 105; TEMP 36.6; O2SAT 99
[2024-09-24 13:33] VITALS: BP 141/97; PULSE 107; O2SAT 96
[2024-09-24 13:38] VITALS: BP 133/87; PULSE 96; O2SAT 98
[2024-09-24 13:43] VITALS: BP 136/85; PULSE 102; O2SAT 97
[2024-09-24 13:52] VITALS: BP 138/90; PULSE 97; TEMP 36.6; O2SAT 97
== END 2024-09-24 14:16 | disposition home or self-care (01) ==
PROVIDERS: Nurse Practitioner; Visit Provider Surgery
PROC: 0DJ08ZZ Inspection of Upper Intestinal Tract, Via Natural or Artificial Opening Endoscopic (ICD-10-PCS; CPT 43235; principal; 2024-09-24 12:30)
DX: E66.01 Morbid (severe) obesity due to excess calories (principal); Z68.43 Body mass index [BMI] 50.0-59.9, adult; K29.50 Unspecified chronic gastritis without bleeding; B96.81 Helicobacter pylori [H. pylori] as the cause of diseases classified elsewhere; E03.9 Hypothyroidism, unspecified; Z72.0 Tobacco use
CPT/HCPCS: 43239; 81025; 88305; 88313; 88342; J0330; J1100; J2003; J2405; J2704

== ENCOUNTER → 2024-09-24 11:03 | Outpatient (BNV) | payer OTHER, SELFPAY | PROVIDERS: Visit Provider Surgery | DX: E66.01 Morbid (severe) obesity due to excess calories (principal); Z68.43 Body mass index [BMI] 50.0-59.9, adult | CPT/HCPCS: 43239 ==

== ENCOUNTER 2025-03-02 19:15 | Emergency (ER) | payer OTHER, SELFPAY ==
[2025-03-02 19:29] VITALS: BP 156/85; PULSE 90; RESP 18; TEMP 37.2; O2SAT 98; BMI 50.3
--- NOTE | 2025-03-02 19:35 | ED.GENADULT ---
HPI - General Adult General Chief complaint: Skin/Abscess/Foreign Body Stated complaint: scar infected? Time Seen by Provider: 03/02/25 19:35 Source: patient and RN notes reviewed Limitations: no limitations History of Present Illness HPI narrative: 24-year-old female presents for evaluation of possible infected site. She is 9 months status post . Patient states over the past several days she has noticed it becoming red, irritated and uncomfortable. She has been using baby powder without relief. She denies any fevers chills nausea or vomiting. No history of diabetes but positive family history. No abdominal pain. She has been eating and drinking normally. Patient is otherwise feeling well. Related Data Previous Rx's ?Medication ?Instructions ?Recorded nystatin 100,000 unit/gram topical 1 appl topical BID #30 grams 03/02/25 cream Allergies Allergy/AdvReac Type Severity Reaction Status Date / Time No Known Allergies Allergy Verified 03/02/25 19:32 Review of Systems Review of Systems: Yes all other systems are reviewed and are negative Gastrointestinal: Gastrointestinal: Denies abdominal pain PMFSH Past Medical History Medical History Hypothyroidism Morbid obesity Delivery with history of No known health problems Surgical History (Updated 09/24/24 @ 11:34 by Nadine Powers RN) Previous section Family History Family History (Updated 09/04/24 @ 14:12 by Marisa Pina CMA) Mother No problems noted. Father Diabetes Daughter No problems noted. Social History Social History (Updated 09/04/24 @ 14:12 by Marisa Pina CMA) Are you a primary care nurse rn to a significant other at home: No Do you presently have visiting nurse or other home services: No Alcohol intake: current Alcohol intake frequency: holidays/special occasions only Patient Tobacco Use Status: Current everyday Tobacco user Tobacco use type: Smokeless Tobacco Years Smoked: 6 Physical Exam ED Vital Signs: Vital Signs - 24 hr 03/02/25 19:29 Temperature 98.9 F Pulse Rate 90 Respiratory Rate 18 Blood Pressure 156/85 H Pulse Oximetry 98 Oxygen Delivery Method Room Air BMI result Body Mass Index 50.3 Const General: alert and awake Skin Other: Mild erythema, scattered under the pannus. Several areas of slight induration. Well demarcated scattered papules. No vesicles. No draining. Large amount of baby powder to the area. No streaking. Course Course Course Narrative: Glucose 92. Reviewed all discharge instructions. No further questions at this time. Medical Decision Making Medical Decision Making MDM Narrative: 24-year-old female with several day history of redness and discomfort under the pannus. Patient concern for infected site. At this time there does not appear to be any secondary signs of infection but I am concerned for Loretta. The scar is well healed. There was no active discharge. Patient denies diabetes but states that positive family history. Check glucose. Differential Diagnosis Differential Diagnoses: The differential diagnosis associated with the presentation includes DKA Tinea Loretta Cellulitis Lab Data Labs: Lab Results 03/02/25 Range/Units 19:37 POC Glucose 92 (60-115) mg/dL Discharge Plan Discharge Clinical Impression: Candidiasis, intertrigo Patient Disposition: Home, Self-Care Instructions: Skin Yeast Infection (ED) Additional Instructions: Nystatin cream to the affected area. Keep the area clean and dry. Follow-up with your primary care provider. Call this week to schedule a follow-up appointment. Return to the emergency department if you have any worsening of symptoms, or any concerns. Get well soon! Prescriptions: New nystatin 100,000 unit/gram cream 1 appl topical BID Qty: 30 0RF Print Language: Angolan
[2025-03-02 19:42] LABS: Glucose, Whole Blood 92 mg/dL (60-115)
[2025-03-02 20:00] VITALS: BP 156/85; PULSE 90; RESP 18; TEMP 37.2; O2SAT 98
== END 2025-03-02 20:00 | disposition home or self-care (01) ==
PROVIDERS: Emergency Provider Emergency Medicine
DX: L30.4 Erythema intertrigo (principal); B37.2 Candidiasis of skin and nail
CPT/HCPCS: 82947; 99284